=== PATIENT | male | born 1945 | race Caucasian/White ===

== ENCOUNTER 2021-01-18 11:00 | IRF | payer MEDICARE, SELFPAY ==
[2021-01-18 11:00] VITALS: BP 116/46; PULSE 68; RESP 18; TEMP 36.1; O2SAT 99; BMI 18.8
--- NOTE | 2021-01-18 11:00 | ADMGEN ---
This patient, Harris Ray, was admitted to [facility] Room 221-02. Patient/family oriented to hospital policies and general routines including ID bracelet, bed and alarms, visiting hours, pain management, procedures, bathroom and other care routines, personal items, smoking policy, room service/diet, and visiting hours. Information on how to activate the Rapid Response Team has been discussed. Patient/Family are encouraged to report perceived risks to care and to ask questions if they do not understand what they are told or what they should do. Was transported via [facility] last B/P 102/58, here is 116/46. made aware of admission. Alert, oriented, pleasant
[2021-01-18 12:12] LABS: Glucose Point of Care 207 mg/dl (65-105)
[2021-01-18 14:00] VITALS: BP 101/46; PULSE 63; RESP 18; TEMP 36.1; O2SAT 99
[2021-01-18 15:07] LABS: Mean Platelet Volume 9.4 fl (7.4-10.4); Platelet Count Result 295 k/mm3 (150-375)
--- NOTE | 2021-01-18 16:09 | WPDREHABHP ---
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 Patient was admitted on 01/05/2021 to [facility] ED with complaints of dizziness and generalized weakness. Patient was found to have an urinary tract infection and was placed on IV antibiotics. Patient was cleared for surgery and underwent a left AKA on 01/12/[address] left AKA by Dr Jung . [facility] course: UTI treated with Rocephin 01/12/21 L AKA Cardiology was consulted to adjust meds. Patient has a history of pacemaker due to Afib/flutter and recently had an ablation. Patient's Eliquis has been discontinued with successful NSR after ablation. Post op includes hypotension, urinary retention with Segal being discontinued on 01/13, postoperative pain, hyponatremia, hyperglycemia with A1c [id number], leukocytosis, and acute blood loss anemia. Postop pain was controlled with IV Dilaudid COSTUME SHOP MANAGER which was removed on 01/16 and currently is on [place]. patient's home medicine of glipizide was discontinued upon transfer to rehab. Patient will remain on heparin 5000 units q.8 hours for prophylaxis of DVT. Patient will remain on aspirin and beta-silas. The patient has not traveled outside the [place] or had contact with someone who is ill that his travel outside the [place] in the past 21 days. The patient has not traveled to an area of the [place] that is experiencing no transmission of COVID and has not had close personal contact with anyone with COVID. The patient does not have a fever nor experiencing lowers respiratory illness symptoms. Therapy was initiated at the acute care facility and the patient transferred to us from [facility] on 01/18/2021 FALLS OR SURGERIES: the patient has had major surgery last 100 days, left AKA on 01/12/2021. The patient has not had falls nor injuries from falls in the past years. PRIOR LEVEL OF FUNCTION: Eating was [INDEPENDENT] Oral Care was [INDEPENDENT] Toileting Hygiene was [INDEPENDENT] Shower/Bathing was [INDEPENDENT] Upper Body Dressing was [INDEPENDENT] Lower Body Dressing was [INDEPENDENT] Donning/[place] Footwear was [INDEPENDENT] Rolling Left and Right was [INDEPENDENT] Sit to Lying was [INDEPENDENT] Lying to Sitting was [INDEPENDENT] Sit to Stand was [INDEPENDENT] Bed to Chair Transfers was [INDEPENDENT] Toilet Transfers was [INDEPENDENT] Walking was [INDEPENDENT] [>500 feet] with [NO DEVICE] Wheelchair Mobility was [NOT APPLICABLE PRIOR TO ADMISSION] Stairs were 14 stepsINDEPENDENT CURRENT LEVEL OF FUNCTION: Eating was independent Oral Care was set upper clean-up assistance Toileting Hygiene was substantial to max assist Shower/Bathing was partial to mod assist Upper Body Dressing was setup Lower Body Dressing was substantial to max assist Donning/[place] Footwear was substantial to max assist Rolling Left and Right was partial to mod assist Sit to Lying was substantial to max assist Lying to Sitting was substantial to max assist Sit to Stand was substantial to max assist Bed to Chair Transfers were dependent Toilet Transfers were dependent Walking was 2 ft wit
[2021-01-18 16:42] LABS: Glucose Point of Care 196 mg/dl (65-105)
[2021-01-18] MEDS: HEPARIN SODIUM 5,000 UNITS/ML VIAL 5000 UNITS SUB-Q ×2 (17:29→20:40)
[2021-01-18] MEDS: FUROSEMIDE 40 MG TABLET PO (17:30)
[2021-01-18] MEDS: PANTOPRAZOLE 40 MG TABLET PO (17:30)
[2021-01-18] MEDS: DOCUSATE SODIUM 100 MG CAPSULE PO (17:31)
[2021-01-18] MEDS: HYDROcodone/acetaminophen (*CRX) 7.5-325 MG TABLET 1 TAB PO (17:35)
[2021-01-18 20:40] VITALS: PULSE 63
[2021-01-18] MEDS: TAMSULOSIN HCL 0.4 MG CAPSULE PO (20:40)
[2021-01-18] MEDS: carvediloL 3.125 MG TABLET PO (20:40)
[2021-01-18] MEDS: ROSUVASTATIN 10 MG TABLET 20 MG PO (20:40)
[2021-01-18 21:53] VITALS: BP 118/47; PULSE 60; RESP 16; TEMP 36.6; O2SAT 99
[2021-01-18 21:54] LABS: Glucose Point of Care 203 mg/dl (65-105)
[2021-01-18] MEDS: ACETAMINOPHEN 325 MG TABLET 650 MG PO (22:35)
[2021-01-19] MEDS: HYDROcodone/acetaminophen (*CRX) 7.5-325 MG TABLET 1 TAB PO ×2 (00:26→08:31)
[2021-01-19 04:49] LABS: Basophils Absolute Auto 0.1 K/mm3 (0.0-0.1); Basophils Percent Auto 1.3 % (0.2-1.2); Eosinophils Absolute Auto 0.1 K/mm3 (0-0.3); Eosinophils Percent Auto 1.8 % (0-4.4); Hematocrit 33.9 % (42.0-52.0); Hemoglobin 11.8 g/dL (14.0-18.0); Immature Granulocyte Absolute 0.04 K/mm3 (0.00-0.031); Immature Granulocyte Percent A 0.5 % (0-0.5); Lymphocytes Absolute Auto 1.36 K/mm3 (0.9-3.2); Lymphocytes Percent Auto 17.9 % (18.3-44.2); Mean Corpuscular HGB Conc 34.8 g/dl (32-36); Mean Corpuscular Hemoglobin 31.4 pg (26-34); Mean Corpuscular Volume 90.2 fl (80-100); Mean Platelet Volume 9.5 fl (7.4-10.4); Monocytes Absolute Auto 0.7 K/mm3 (0.1-0.6); Monocytes Percent Auto 9.7 % (2.6-8.5); Neutrophils Absolute Auto 5.2 K/mm3 (1.3-6.7); Neutrophils Percent Auto 68.8 % (45.5-73.1); Platelet Count Result 286 k/mm3 (150-375); Red Blood Count 3.76 M/mm3 (4.6-6.20); Red Cell Distribution Width 13.8 % (11.5-14.5); White Blood Count 7.6 K/mm3 (4.5-10.0)
[2021-01-19 04:58] LABS: Alanine Aminotransferase 17 U/L (4-50); Albumin Level 3.5 g/dL (3.5-5.1); Alkaline Phosphatase 78 U/L (38-126); Anion Gap 1 mmol/L (8-16); Aspartate Amino Transferase 31 U/L (17-59); Bilirubin,Total 0.7 mg/dL (0.2-1.3); Blood Urea Nitrogen 18 mg/dL (9-20); Calcium 9.8 mg/dL (8.4-10.2); Carbon Dioxide 33 mmol/L (22-30); Chloride 95 mmol/L (98-107); Estimated CRCL calculation 59 ml/min; Estimated Glomerular Filt Rate > 60; Glucose 151 mg/dL (75-110); Potassium 3.4 mmol/L (3.4-5.0); Sodium 129 mmol/L (137-145)
[2021-01-19 06:00] VITALS: BP 170/63; PULSE 68; RESP 16; TEMP 36.1; O2SAT 96
[2021-01-19] MEDS: HEPARIN SODIUM 5,000 UNITS/ML VIAL 5000 UNITS SUB-Q ×3 (06:51→20:12)
[2021-01-19 06:59] LABS: Glucose Point of Care 180 mg/dl (65-105)
[2021-01-19 08:30] VITALS: PULSE 68
[2021-01-19] MEDS: FUROSEMIDE 40 MG TABLET PO ×2 (08:30→17:17)
[2021-01-19] MEDS: ASPIRIN 81 MG ENTERIC TABLET PO (08:30)
[2021-01-19] MEDS: carvediloL 3.125 MG TABLET PO ×2 (08:30→20:14)
[2021-01-19] MEDS: TAMSULOSIN HCL 0.4 MG CAPSULE PO ×2 (08:30→20:12)
[2021-01-19] MEDS: DOCUSATE SODIUM 100 MG CAPSULE PO ×2 (08:31→17:17)
[2021-01-19] MEDS: NICOTINE (*PBKC) 21 MG PATCH 1 PATCH TRANSDERM (08:31)
--- NOTE | 2021-01-19 10:53 | RPD ---
INDIVIDUALIZED PLAN OF CARE FOR Harris Ray Brief Synthesis of Pre-Admission Screen, Post-Admission Evaluation and Therapy Evaluations: The patient presents to rehab with severe PVD and aortoiliac occlusive disease s/p left [id number]. Comorbidities include CAD s/p CABG x 6 (2006), DM with chronic kidney disease stage 3, peripheral neuropathy, HTN, HLD, systolic CHF, ischemic cardiomyopathy s/p biventricular pacemaker, atrial fibrillation chronically anticoagulated on Eliquis, current tobacco use, generalized weakness, UTI, left cataract, COPD, GERD, IBS, BPH with nocturia, osteoarthritis, cervical disc disease, lumbar disc disease, chronic back pain, restless leg syndrome, depression, urinary retention, acute cystitis without hematuria, leukocytosis, normocytic normochromic anemia, history of hypothyroidism, acute renal failure, generalized weakness. The complexity of the patient's medical management, nursing, and therapy needs require an inpatient rehab hospital stay with a physician-led interdisciplinary team approach. The patient?s needs will be best met in an intensive program vs. at a lower level of care. The patient requires physician services for medical oversight, management of post-op complications in the setting of present comorbidities, management of diabetes mellitus diagnosis, infection, and pain management. Post-op complications have included hypotension, urinary retention (Segal DC 01/13) , post-operative pain, hyponatremia, hyperglycemia (A1c 6.2 on 11/2020), leukocytosis, and acute blood loss anemia. The patient requires nursing services for anticoagulation therapy, diabetes training, DVT prophylactics, infection protection, medication management and education, pressure relief, and wound care. The patient will be taught how to wrap the residual limb and how to monitor their skin for promotion of healing. Deficits include:ADLs, Balance, Endurance, Family Training/Education, Mobility, Pain Management, ROM, Safety, Strength, and Transfers. Lay Out And Detail Drafter/Case Management for: Discharge Planning and Patient/Family Counseling Physical Therapy: 5 days per week for 90 minutes. Treatments may include: Therapeutic Exercise, Gait Training, Neuromuscular Re-education, Transfer Training, Community Reintegration, Bed Mobility, Patient/Family Education, Wheelchair Mobility Group Therapy/Concurrent Therapy Rationales: -Improve attention span during functional activities in a distracted environment. -Enhance problem solving and/or adequate judgment skills during functional activities in a distracted environment. -Promote increased safety awareness in a distracted environment to reduce fall risk with functional tasks, transfers, and ambulation to allow a more safe, self-sufficient return to the home environment. -Improve dynamic balance skills to promote safety and independence with functional activities in a distracted environment for maximum gain. Occupational Therapy: 5 days per week for 90 minutes. Treatments may include: Therapeutic Exercise, Therapeutic Activity, Cognitive Training, Self-Care Transfer Training, Community Reintegration, Home Management, Patient/Family Education, Wheelchair Mobility Training, Energy Conservation Training Group Therapy/Concurrent Therapy Rationales: -Allow therapist to observe and teach generalization and carry-over of skills learned in individual therapy. -Enhance problem solving and sequencing skills during therapeutic activities in a distracted environment. -Promote increased safety awareness in a realistic setting to reduce fall risk with functional tasks due to visual and verbal distractions. -Increase functional level with ADLs, ADL transfers and use of adaptive equipment through therapeutic activities with others while promoting safety to allow a more safe, self-sufficient return home. Medical Prognosis: Good Anticipated Length of Stay: 14 days Rehab Goals: Eating Goal: 06-Independent Oral Hygiene Goal:
[2021-01-19 11:56] LABS: Glucose Point of Care 226 mg/dl (65-105)
[2021-01-19 12:09] VITALS: BMI 18.8
[2021-01-19] MEDS: ACETAMINOPHEN 325 MG TABLET 650 MG PO (12:43)
[2021-01-19] MEDS: BETAMETHASONE/CLOTRIMAZOLE CR 15 GM TUBE 1 APPLIC TOPICAL ×2 (12:44→20:15)
[2021-01-19] MEDS: INSULIN ASPART (*BKC) 100 UNITS/ML SUB-Q (12:44)
[2021-01-19] MEDS: SILVERGEL (ELTA) 45 ML 1 APPLIC TOPICAL (12:44)
--- NOTE | 2021-01-19 13:28 | WPDNEURORHBP ---
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 Patient was admitted on 01/05/2021 to [facility] ED with complaints of dizziness and generalized weakness. Patient was found to have an urinary tract infection and was placed on IV antibiotics. Patient was cleared for surgery and underwent a left AKA on 01/12/[address] Jung . [facility] course: UTI treated with Rocephin 01/12/21 L AKA Cardiology was consulted to adjust meds. Patient has a history of pacemaker due to Afib/flutter and recently had an ablation. Patient's Eliquis has been discontinued with successful NSR after ablation. Post op includes hypotension, urinary retention with Segal being discontinued on 01/13, postoperative pain, hyponatremia, hyperglycemia with A1c 6. leukocytosis, and acute blood loss anemia. Postop pain was controlled with IV Dilaudid PROFESSIONAL ORGANIZER which was removed on 01/16 and currently is on [place]. patient's home medicine of glipizide was discontinued upon transfer to rehab. Patient will remain on heparin 5000 units q.8 hours for prophylaxis of DVT. Patient will remain on aspirin and beta-silas. Therapy was initiated at the acute care facility and the patient transferred to us from [facility] on 01/18/21 Patient c Review of Systems Review of Systems: Narrative: Patient complaining of upper thoracic/lower cervical pain. Patient complaining of phantom limb pain. Patient with complaints of dizziness, and lightheadedness when sitting up. Functional Status Ambulation Ability Ability to Ambulate 10 Feet: Total Assistance X 1 Ambulation Assistive Devices: Walker, Wheeled Exam Narrative: Exam Narrative: Skin slightly paler than yesterday. Head normocephalic, EOMI, kyphotic posture. Heart rate and rhythm is regular. Lung sounds are distant. Abdomen is soft nontender. Overall endurance is fair minus. Objective Data Vital Signs Vital Signs: Vital Signs - 24 hr 01/18/21 14:00 01/18/21 20:40 01/18/21 21:53 Temperature 36.1 C L 36.6 C Pulse Rate 63 63 60 Respiratory Rate 18 16 Blood Pressure 101/46 L 118/47 L Pulse Oximetry 99 99 01/19/21 06:00 01/19/21 08:30 Temperature 36.1 C L Pulse Rate 68 68 Respiratory Rate 16 Blood Pressure 170/63 H Pulse Oximetry 96 Intake/Output Intake/Output: Intake & Output 01/16/21 01/17/21 01/18/21 01/19/21 23:59 23:59 23:59 23:59 Intake Total 720 240 Balance 720 240 Meds/Results Medications: Active Medications Generic Name Dose Route Start Last Admin Trade Name Freq PRN Reason Stop Dose Admin Acetaminophen 650 mg 01/18/21 14:13 01/19/21 12:43 Acetaminophen 325 Mg Tablet PO 650 mg Q6H PRN Administration h/a, mild pain, fever Hydrocodone Bitart/Acetaminophen 1 tab 01/18/21 14:13 01/19/21 08:31 Hydrocodone/Acetaminophen (*Crx) 7.5-325 Mg Tablet PO 1 tab Q4H PRN Administration Pain (Scale Score 7-10) Aspirin 81 mg 01/19/21 09:00 01/19/21 08:30 Aspirin 81 Mg Enteric Tablet PO 81 mg DAILY JESS Administration Carvedilol 3.125 mg 01/19/21 21:00 Carvedilol 3.125 Mg Tablet PO BID [facility] Clotrimazole 1 applic 01/19/21 09:00 01/19/21 12:44 Betamethasone/Clotrimazole Cr 15 Gm Tube TOPICAL 1 applic Q12HR JESS Administration Dextrose 12.5 gm 01/18/21 12:30 Dextrose 50% 25 Gm/50 Ml Syringe I
[2021-01-19 14:00] VITALS: BP 122/55; PULSE 69; RESP 18; TEMP 36.6; O2SAT 99
--- NOTE | 2021-01-19 15:53 | PM.IMCN ---
Assessment and Plan Assessment and plan (1) Hyponatremia: Code(s): E87.1 - Hypo-osmolality and hyponatremia Status: Acute Assessment and Plan: Patient is getting diuretics. His sugar is high and patient is drinking lot of fluids. These all can contribute to low sodium level. Plan is to give him low-dose 0.9 saline for few days. Restrict p.o. fluid intake. Control is sugar better. Monitor BMP in the morning. (2) Above knee amputation of left lower extremity: Code(s): S78.112A - Complete traumatic amputation at level between left hip and knee, initial encounter Status: Acute Assessment and Plan: Continue physical therapy. (3) Phantom pain after amputation of lower extremity: Code(s): G54.6 - Phantom limb syndrome with pain Status: Acute Assessment and Plan: Continue pain control. (4) Chronic kidney disease, stage 3: Code(s): N18.30 - Chronic kidney disease, stage 3 unspecified Status: Acute Assessment and Plan: Monitor BMP the morning. (5) COPD (chronic obstructive pulmonary disease): Code(s): J44.9 - Chronic obstructive pulmonary disease, unspecified Status: Acute Assessment and Plan: States stable on medication. (6) Hypertension: Code(s): I10 - Essential (primary) hypertension Status: Acute Assessment and Plan: Stable on medication. (7) Hyperlipidemia: Code(s): E78.5 - Hyperlipidemia, unspecified Status: Acute Assessment and Plan: Stable on medication. (8) Peripheral vascular disease: Code(s): I73.9 - Peripheral vascular disease, unspecified Status: Acute Assessment and Plan: Stable on medication. HPI Data of Consult Consult date: 01/19/21 Requesting Physician: Harriet Wick DO Primary Care Provider: UNKNOWN,DOCTOR Consult Narrative Narrative: Reason for consult:- Hyponatremia Mr. Harris hummel is 75 years old male with history of multiple medical problems including diabetes mellitus was seen in the rehab room 221 for a sodium level of 129. Patient is getting rehab in the rehab unit of [facility] for left above-knee amputation that was done about 1 week ago. At present time patient is completely asymptomatic. His pain is under control. Patient denies any shortness of breath or chest pain. Patient denies any abdominal pain, nausea, vomiting. Patient denies any fever or chills. Patient appetite is good and his mood is stable. Review of Systems Review of Systems: All systems reviewed & are unremarkable except as noted in HPI and below (the history and physical exam.) [facility] Past Medical History Medical History BPH (benign prostatic hyperplasia) Cardiac pacemaker Cervical disc disease CHF (congestive heart failure) Chronic back pain Chronic kidney disease, stage 3 Chronic wound of extremity COPD (chronic obstructive pulmonary disease) Coronary artery disease GERD (gastroesophageal reflux disease) History of atrial fibrillation History of depression History of recurrent UTIs Hyperlipidemia Hypertension Irritable bowel syndrome Lumbar disc disease Osteoarthritis Osteoporosis Pacemaker Peripheral neuropathy Peripheral vascular disease Restless leg syndrome Tobacco abuse Type 2 diabetes mellitus Surgical History Surgical History History of angioplasty History of cataract surgery S/P ablation of atrial fibrillation S/P femoral-popliteal bypass surgery Status post aorto-coronary artery bypass graft Family History Family History Mother Diabetes mellitus Father Heart disease Social History Social History Social History: . Patient lives alone. 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 He has many friends and support hi
[2021-01-19] MEDS: PANTOPRAZOLE 40 MG TABLET PO (17:17)
[2021-01-19] MEDS: GABAPENTIN 100 MG CAPSULE PO (17:17)
[2021-01-19 17:19] LABS: Glucose Point of Care 169 mg/dl (65-105)
--- NOTE | 2021-01-19 18:20 | PC.NURSE ---
Called Dr. Martines to clarify orders, he stated he wanted potassium to start today and also IV NS to start today, not tuesday, Also he stated to continue PO fluid restriction
[2021-01-19] MEDS: POTASSIUM CHLORIDE 20 MEQ PACKET (FOR LIQUID) PO (19:43)
[2021-01-19] MEDS: SODIUM CHLORIDE 0.9% IV 1,000 ML 75 ML IV CONT (19:43)
[2021-01-19] MEDS: ROSUVASTATIN 10 MG TABLET 20 MG PO (20:12)
[2021-01-19 20:14] VITALS: PULSE 68
[2021-01-19 20:24] LABS: Glucose Point of Care 230 mg/dl (65-105)
[2021-01-19 22:00] VITALS: BP 109/59; PULSE 67; RESP 18; TEMP 36.8; O2SAT 95
[2021-01-20] VITALS (7 sets, daily range): BP systolic 109–153; BP diastolic 50–62; PULSE 59–72; RESP 16–24; TEMP 36.1; O2SAT 96–100
[2021-01-20 05:04] LABS: Anion Gap 5 mmol/L (8-16); Blood Urea Nitrogen 17 mg/dL (9-20); Calcium 9.5 mg/dL (8.4-10.2); Carbon Dioxide 29 mmol/L (22-30); Chloride 98 mmol/L (98-107); Estimated CRCL calculation 59 ml/min; Estimated Glomerular Filt Rate > 60; Glucose 151 mg/dL (75-110); Potassium 3.6 mmol/L (3.4-5.0); Sodium 132 mmol/L (137-145)
[2021-01-20] MEDS: HEPARIN SODIUM 5,000 UNITS/ML VIAL 5000 UNITS SUB-Q ×3 (06:02→22:00)
[2021-01-20 06:10] LABS: Glucose Point of Care 159 mg/dl (65-105)
[2021-01-20] MEDS: SODIUM CHLORIDE 0.9% IV 1,000 ML 75 ML IV CONT ×2 (07:57→22:58)
[2021-01-20] MEDS: HYDROcodone/acetaminophen (*CRX) 7.5-325 MG TABLET 1 TAB PO ×2 (08:36→14:19)
[2021-01-20] MEDS: GABAPENTIN 100 MG CAPSULE PO ×3 (08:37→22:59)
[2021-01-20] MEDS: ASPIRIN 81 MG ENTERIC TABLET PO (08:37)
[2021-01-20] MEDS: FUROSEMIDE 40 MG TABLET PO ×2 (08:40→16:55)
[2021-01-20] MEDS: DOCUSATE SODIUM 100 MG CAPSULE PO ×2 (08:40→16:55)
[2021-01-20] MEDS: TAMSULOSIN HCL 0.4 MG CAPSULE PO ×2 (08:40→22:59)
--- NOTE | 2021-01-20 10:47 | PM.IMPN ---
Progress Note: A&P Assessment and Plan (1) Hyponatremia: Code(s): E87.1 - Hypo-osmolality and hyponatremia Status: Acute Assessment and Plan: Patient is getting diuretics. His sugar is high and patient is drinking lot of fluids. These all can contribute to low sodium level. Plan is to give him low-dose 0.9 saline for few days. Restrict p.o. fluid intake. Control is sugar better. Monitor BMP in the morning. (2) Above knee amputation of left lower extremity: Code(s): S78.112A - Complete traumatic amputation at level between left hip and knee, initial encounter Status: Acute Assessment and Plan: Continue physical therapy. (3) Phantom pain after amputation of lower extremity: Code(s): G54.6 - Phantom limb syndrome with pain Status: Acute Assessment and Plan: Continue pain control. (4) Chronic kidney disease, stage 3: Code(s): N18.30 - Chronic kidney disease, stage 3 unspecified Status: Acute Assessment and Plan: Monitor BMP the morning. (5) COPD (chronic obstructive pulmonary disease): Code(s): J44.9 - Chronic obstructive pulmonary disease, unspecified Status: Acute Assessment and Plan: States stable on medication. (6) Hypertension: Code(s): I10 - Essential (primary) hypertension Status: Acute Assessment and Plan: Stable on medication. (7) Hyperlipidemia: Code(s): E78.5 - Hyperlipidemia, unspecified Status: Acute Assessment and Plan: Stable on medication. (8) Peripheral vascular disease: Code(s): I73.9 - Peripheral vascular disease, unspecified Status: Acute Assessment and Plan: Stable on medication. Additional Plan Today patient sodium is 132. Will continue with fluid restriction repeat sodium in the morning sugar is also better controlled. Will continue current treatment and physical therapy Subjective Date/time seen: 01/20/21 10:47 Patient was seen during the morning rounds today. Patient getting physical therapy. Feeling better. No shortness of breath or chest pain. No abdominal pain, no nausea or vomiting. Pain controlled. Mood stable. Review of Systems Review of Systems: All systems reviewed & are unremarkable except as noted in HPI and below (the history and physical exam.) Exam Narrative: Exam Narrative: Exam Narrative: patient is seen sitting in a wheelchair. Patient appears older than his stated age. Patient is alert and oriented x4. Head is normocephalic. Extraocular muscles are intact and tacked. Pupils are pinpoint. Speech is fluent. Heart rate and rhythm is regular. Pacemaker is noted to the left chest wall. Lungs are distant breath sounds. Abdomen is soft nontender with multiple circuit Rx 1 from CABG another from abdominal surgery that required an ileostomy which has been reversed. Right lower extremity reveals excessive dry skin poor foot care is noted. Bilateral upper extremity strength are 4/5 right lower extremity strength is 4-5 left is a AK a incision is intact no drainage noted. Objective Data Vital Signs Vital Signs: Vital Signs - 24 hr 01/19/21 14:00 01/19/21 20:14 01/19/21 22:00 Temperature 36.6 C 36.8 C Pulse Rate 69 68 67 Respiratory Rate 18 18 Blood Pressure 122/55 L 109/59 L Pulse Oximetry 99 95 01/20/21 06:00 Temperature 36.1 C L Pulse Rate 59 L Respiratory Rate 24 H Blood Pressure 149/56 H Pulse Oximetry 96 Intake/Output Intake/Output: Intake & Output 01/17/21 01/18/21 01/19/21 01/20/21 23:59 23:59 23:59 23:59 Intake Total 966 366 0804 Output Total 810 Balance 720 720 430 Meds/Results Medications: Active Medications Generic Name Dose Route Start Last Admin Trade Name Freq PRN Reason Stop Dose Admin Acetaminophen 650 mg 01/18/21 14:13 01/19/21 12:43 Acetaminophen 325 Mg Tablet PO 650 mg Q6H PRN Administration h/a, mild pain, fever Hydrocodone Bitart/[place]
[2021-01-20] MEDS: NICOTINE (*PBKC) 21 MG PATCH 1 PATCH TRANSDERM (10:53)
[2021-01-20] MEDS: LIDOCAINE 5% PATCH 2 PATCH TRANSDERM (10:54)
[2021-01-20] MEDS: SILVERGEL (ELTA) 45 ML 1 APPLIC TOPICAL (10:59)
[2021-01-20] MEDS: BETAMETHASONE/CLOTRIMAZOLE CR 15 GM TUBE 1 APPLIC TOPICAL ×2 (11:00→22:58)
--- NOTE | 2021-01-20 11:48 | PCPTNOTE ---
Harris Ray was evaluated for a wheeled walker on 01/20/2021 by this physical therapist expanded function dental assistant. The wheeled walker will resolve patient's mobility limitations and will be used for ADL's within the home. The patient can safely use the wheeled walker. ?The wheeled walker will resolve the patient?s mobility deficits, including impaired balance, decrease endurance and decrease strength.
[2021-01-20 11:50] LABS: Glucose Point of Care 185 mg/dl (65-105)
[2021-01-20] MEDS: POTASSIUM CHLORIDE 20 MEQ PACKET (FOR LIQUID) PO (12:08)
[2021-01-20] MEDS: carvediloL 3.125 MG TABLET PO ×2 (12:09→22:58)
--- NOTE | 2021-01-20 14:04 | WPDNEURORHBP ---
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 Patient was admitted on 01/05/2021 to [facility] ED with complaints of dizziness and generalized weakness. Patient was found to have an urinary tract infection and was placed on IV antibiotics. Patient was cleared for surgery and underwent a left AKA on 01/12/[address] Jung . [facility] course: UTI treated with Rocephin 01/12/21 L AKA Cardiology was consulted to adjust meds. Patient has a history of pacemaker due to Afib/flutter and recently had an ablation. Patient's Eliquis has been discontinued with successful NSR after ablation. Post op includes hypotension, urinary retention with Segal being discontinued on 01/13, postoperative pain, hyponatremia, hyperglycemia with A1c 6. leukocytosis, and acute blood loss anemia. Postop pain was controlled with IV Dilaudid EPIC TRAINER which was removed on 01/16 and currently is on [place]. patient's home medicine of glipizide was discontinued upon transfer to rehab. Patient will remain on heparin 5000 units q.8 hours for prophylaxis of DVT. Patient will remain on aspirin and beta-silas. Therapy was initiated at the acute care facility and the patient transferred to us from [facility] on 01/18/21 01/20/21 Patient alert and talkative this afternoon. Patient with ongoing complaints of pain. He states that his pain was not controlled at home. Will d/c SSI and resume glipizide at 2.5 mg XL daily. Appreciate hospitalist consult Review of Systems Constitutional: Constitutional: Reports weakness Eyes: Eyes: Reports no additional eye complaints Cardiovascular: Cardiovascular: Reports no additional cardiovascular complaints Neurologic: Reports weakness Functional Status Ambulation Ability Ability to Ambulate 10 Feet: Total Assistance X 1 Ambulation Assistive Devices: Walker, Wheeled Exam Narrative: Exam Narrative: Head normocephalic, EOMI, kyphotic posture. Heart rate and rhythm is regular. Lung sounds are distant. Abdomen is soft nontender. Overall endurance is fair minus.Patient participating in therapy. Objective Data Vital Signs Vital Signs: Vital Signs - 24 hr 01/19/21 20:14 01/19/21 22:00 01/20/21 06:00 Temperature 36.8 C 36.1 C L Pulse Rate 68 67 59 L Respiratory Rate 18 24 H Blood Pressure 109/59 L 149/56 H Pulse Oximetry 95 96 01/20/21 11:00 01/20/21 12:09 Temperature Pulse Rate 61 61 Respiratory Rate Blood Pressure 113/53 L Pulse Oximetry Intake/Output Intake/Output: Intake & Output 01/17/21 01/18/21 01/19/21 01/20/21 23:59 23:59 23:59 23:59 Intake Total 001 511 4160 Output Total 810 Balance 720 720 670 Meds/Results Medications: Active Medications Generic Name Dose Route Start Last Admin Trade Name Freq PRN Reason Stop Dose Admin Acetaminophen 650 mg 01/18/21 14:13 01/19/21 12:43 Acetaminophen 325 Mg Tablet PO 650 mg Q6H PRN Administration h/a, mild pain, fever Hydrocodone Bitart/Acetaminophen 1 tab 01/18/21 14:13 01/20/21 08:36 Hydrocodone/Acetaminophen (*Crx) 7.5-325 Mg Tablet PO 1 tab Q4H PRN Administration Pain (Scale Score 7-10) Aspirin 81 mg 01/19/21 09:00 01/20/21 08:37 Aspirin 81 Mg Enteric Tablet PO 81 mg DAILY JESS Administration Carvedilol 3.125 mg 01/20/21 12:00 01/20/21 12:09 Carve
[2021-01-20] MEDS: PANTOPRAZOLE 40 MG TABLET PO (16:56)
[2021-01-20 17:04] LABS: Glucose Point of Care 174 mg/dl (65-105)
[2021-01-20] MEDS: ROSUVASTATIN 10 MG TABLET 20 MG PO (22:59)
[2021-01-21 05:20] LABS: Anion Gap 3 mmol/L (8-16); Blood Urea Nitrogen 16 mg/dL (9-20); Calcium 9.7 mg/dL (8.4-10.2); Carbon Dioxide 30 mmol/L (22-30); Chloride 102 mmol/L (98-107); Estimated CRCL calculation 59 ml/min; Estimated Glomerular Filt Rate > 60; Glucose 150 mg/dL (75-110); Potassium 4.5 mmol/L (3.4-5.0); Sodium 135 mmol/L (137-145)
[2021-01-21] MEDS: HEPARIN SODIUM 5,000 UNITS/ML VIAL 5000 UNITS SUB-Q ×3 (05:41→22:07)
[2021-01-21 06:00] VITALS: BP 146/56; PULSE 66; RESP 16; TEMP 35.9; O2SAT 97
[2021-01-21 06:00] LABS: Glucose Point of Care 163 mg/dl (65-105)
--- NOTE | 2021-01-21 08:24 | WPDNEURORHBP ---
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 Patient was admitted on 01/05/2021 to [facility] ED with complaints of dizziness and generalized weakness. Patient was found to have an urinary tract infection and was placed on IV antibiotics. Patient was cleared for surgery and underwent a left AKA on 01/12/[address] Jung . [facility] course: UTI treated with Rocephin 01/12/21 L AKA Cardiology was consulted to adjust meds. Patient has a history of pacemaker due to Afib/flutter and recently had an ablation. Patient's Eliquis has been discontinued with successful NSR after ablation. Post op includes hypotension, urinary retention with Segal being discontinued on 01/13, postoperative pain, hyponatremia, hyperglycemia with A1c 6. leukocytosis, and acute blood loss anemia. Postop pain was controlled with IV Dilaudid MASK DESIGNER which was removed on 01/16 and currently is on [place]. patient's home medicine of glipizide was discontinued upon transfer to rehab. Patient will remain on heparin 5000 units q.8 hours for prophylaxis of DVT. Patient will remain on aspirin and beta-silas. Therapy was initiated at the acute care facility and the patient transferred to us from [facility] on 01/18/21 01/20/21 Patient alert and talkative this afternoon. Patient with ongoing complaints of pain. He states that his pain was not controlled at home. Will d/c SSI and resume glipizide at 2.5 mg XL daily. Appreciate hospitalist consult 01/21/21 Patient in good spirits. patient slept well. Incision shows good approximation scant drainage. Right foot wounds are decreasing in size. Review of Systems Review of Systems: Narrative: Patient feeling better but continues chronic pain All systems reviewed & are unremarkable except as noted in HPI and below Functional Status Ambulation Ability Ability to Ambulate 10 Feet: Total Assistance X 1 Ambulation Assistive Devices: Walker, Wheeled Exam Narrative: Exam Narrative: Head normocephalic, EOMI, kyphotic posture. Heart rate and rhythm is regular. Lung sounds are distant. Abdomen is soft nontender. Endurance is better. Incision shows good approximation scant drainage. Right foot wound is healing Objective Data Vital Signs Vital Signs: Vital Signs - 24 hr 01/20/21 11:00 01/20/21 12:09 01/20/21 14:00 Temperature 36.1 C L Pulse Rate 61 61 66 Respiratory Rate 18 Blood Pressure 113/53 L 109/62 Pulse Oximetry 96 01/20/21 21:59 01/20/21 22:58 01/21/21 06:00 Temperature 36.1 C L 35.9 C L Pulse Rate 65 72 66 Respiratory Rate 16 16 Blood Pressure 153/50 H 146/56 H Pulse Oximetry 100 97 Intake/Output Intake/Output: Intake & Output 01/18/21 01/19/21 01/20/21 01/21/21 23:59 23:59 23:59 23:59 Intake Total 988 852 3585 120 Output Total 1710 1480 Balance 186 475 1673 -1360 Meds/Results Medications: Active Medications Generic Name Dose Route Start Last Admin Trade Name Freq PRN Reason Stop Dose Admin Acetaminophen 650 mg 01/18/21 14:13 01/19/21 12:43 Acetaminophen 325 Mg Tablet PO 650 mg Q6H PRN Administration h/a, mild pain, fever Hydrocodone Bitart/Acetaminophen 1 tab 01/18/21 14:13 01/20/21 14:19 Hydrocodone/Acetaminophen (*Crx) 7.5-325 Mg Tablet PO 1 tab Q4H PRN Administration Pain (Scale Score 7-10) Aspir
[2021-01-21] MEDS: ASPIRIN 81 MG ENTERIC TABLET PO (09:06)
[2021-01-21] MEDS: glipiZIDE XL 2.5 MG TAB.ER.24 PO (09:06)
[2021-01-21] MEDS: BETAMETHASONE/CLOTRIMAZOLE CR 15 GM TUBE 1 APPLIC TOPICAL ×2 (09:07→22:07)
[2021-01-21] MEDS: GABAPENTIN 100 MG CAPSULE PO ×4 (09:07→22:07)
[2021-01-21] MEDS: DOCUSATE SODIUM 100 MG CAPSULE PO (09:07)
[2021-01-21] MEDS: FUROSEMIDE 40 MG TABLET PO ×2 (09:07→17:09)
[2021-01-21] MEDS: NICOTINE (*PBKC) 21 MG PATCH 1 PATCH TRANSDERM (09:08)
[2021-01-21] MEDS: POTASSIUM CHLORIDE 20 MEQ PACKET (FOR LIQUID) PO (09:08)
[2021-01-21] MEDS: LIDOCAINE 5% PATCH 2 PATCH TRANSDERM (09:08)
[2021-01-21] MEDS: SILVERGEL (ELTA) 45 ML 1 APPLIC TOPICAL (09:08)
[2021-01-21] MEDS: TAMSULOSIN HCL 0.4 MG CAPSULE PO ×2 (09:09→22:06)
[2021-01-21] MEDS: ACETAMINOPHEN 325 MG TABLET 650 MG PO (09:24)
[2021-01-21 09:48] VITALS: BP 110/53; PULSE 78; O2SAT 100
[2021-01-21] MEDS: SODIUM CHLORIDE 0.9% IV 1,000 ML 75 ML IV CONT (11:36)
[2021-01-21 11:53] LABS: Glucose Point of Care 180 mg/dl (65-105)
[2021-01-21 13:04] VITALS: PULSE 78
[2021-01-21] MEDS: carvediloL 3.125 MG TABLET PO ×2 (13:04→22:06)
--- NOTE | 2021-01-21 13:43 | PM.IMPN ---
Progress Note: A&P Assessment and Plan (1) Hyponatremia: Code(s): E87.1 - Hypo-osmolality and hyponatremia Status: Acute Assessment and Plan: Patient is getting diuretics. Most likely related to dehydration continue IV fluidr. Repeat BMP in the morning Anticipate DC IV fluid in the morning. (2) Above knee amputation of left lower extremity: Code(s): S78.112A - Complete traumatic amputation at level between left hip and knee, initial encounter Status: Acute Assessment and Plan: Continue physical therapy. (3) Phantom pain after amputation of lower extremity: Code(s): G54.6 - Phantom limb syndrome with pain Status: Acute Assessment and Plan: Pain control (4) Chronic kidney disease, stage 3: Code(s): N18.30 - Chronic kidney disease, stage 3 unspecified Status: Acute Assessment and Plan: Repeat BMP in a.m. stable avoid nephrotoxic medication (5) COPD (chronic obstructive pulmonary disease): Code(s): J44.9 - Chronic obstructive pulmonary disease, unspecified Status: Acute Assessment and Plan: States stable on medication. (6) Hypertension: Code(s): I10 - Essential (primary) hypertension Status: Acute Assessment and Plan: Stable on medication. (7) Hyperlipidemia: Code(s): E78.5 - Hyperlipidemia, unspecified Status: Acute Assessment and Plan: Stable on medication. (8) Peripheral vascular disease: Code(s): I73.9 - Peripheral vascular disease, unspecified Status: Acute Assessment and Plan: Stable on medication. Additional Plan Today patient sodium is 135 Will continue with fluid restriction repeat sodium in the morning anticipate DC IV fluid in the morning Will continue current treatment and physical therapy Subjective Date/time seen: 01/21/21 13:43 Interval history: Patient seen and examined Patient feels better today still have episodes of dizziness Current on IV fluid Patient denies fever headache chest pain shortness of breath I am seeing the patient for dehydration Exam Narrative: Exam Narrative: Alert looks dehydrated Chest no wheeze crackles Abdomen nontender nondistended CVS S1 + S2 Lower extremity edema . Objective Data Vital Signs Vital Signs: Vital Signs - 24 hr 01/20/21 14:00 01/20/21 21:59 01/20/21 22:58 Temperature 96.9 F L 96.9 F L Pulse Rate 66 65 72 Respiratory Rate 18 16 Blood Pressure 109/62 153/50 H Pulse Oximetry 96 100 01/21/21 06:00 01/21/21 09:48 01/21/21 13:04 Temperature 96.6 F L Pulse Rate 66 78 78 Respiratory Rate 16 Blood Pressure 146/56 H 110/53 L Pulse Oximetry 97 100 Intake/Output Intake/Output: Intake & Output 01/18/21 01/19/21 01/20/21 01/21/21 23:59 23:59 23:59 23:59 Intake Total 338 469 9386 1720 Output Total 1710 1480 Balance 932 746 8499 240 Meds/Results Medications: Active Medications Generic Name Dose Route Start Last Admin Trade Name Freq PRN Reason Stop Dose Admin Acetaminophen 650 mg 01/18/21 14:13 01/21/21 09:24 Acetaminophen 325 Mg Tablet PO 650 mg Q6H PRN Administration h/a, mild pain, fever Hydrocodone Bitart/Acetaminophen 1 tab 01/18/21 14:13 01/20/21 14:19 Hydrocodone/Acetaminophen (*Crx) 7.5-325 Mg Tablet PO 1 tab Q4H PRN Administration Pain (Scale Score 7-10) Aspirin 81 mg 01/19/21 09:00 01/21/21 09:06 Aspirin 81 Mg Enteric Tablet PO 81 mg DAILY JESS Administration Carvedilol 3.125 mg 01/20/21 12:00 01/21/21 13:04 Carvedilol 3.125 Mg Tablet PO 3.125 mg 1200,2100 JESS Administration Clotrimazole 1 applic 01/19/21 09:00 01/21/21 09:07 Betamethasone/Clotrimazole Cr 15 Gm Tube TOPICAL 1 applic Q12HR JESS Administration Dextrose 12.5 gm 01/18/21 12:30 Dextrose 50% 25 Gm/50 Ml Syringe IV PUSH PRN PRN Hypoglycemia Protocol Docusate Sodium 100 mg 01/18/21 17:00 01/21/21 09:07
[2021-01-21 14:00] VITALS: BP 121/48; PULSE 75; RESP 20; TEMP 36.4; O2SAT 100
[2021-01-21] MEDS: PANTOPRAZOLE 40 MG TABLET PO (17:08)
[2021-01-21 17:16] LABS: Glucose Point of Care 157 mg/dl (65-105)
[2021-01-21 22:00] VITALS: BP 165/57; PULSE 60; RESP 18; TEMP 36.6; O2SAT 99
[2021-01-21 22:06] VITALS: PULSE 75
[2021-01-21] MEDS: ROSUVASTATIN 10 MG TABLET 20 MG PO (22:06)
[2021-01-21 22:34] LABS: Glucose Point of Care 219 mg/dl (65-105)
[2021-01-22] MEDS: HEPARIN SODIUM 5,000 UNITS/ML VIAL 5000 UNITS SUB-Q ×3 (05:36→21:55)
[2021-01-22] MEDS: SODIUM CHLORIDE 0.9% IV 1,000 ML 75 ML IV CONT (05:39)
[2021-01-22 06:00] VITALS: BP 150/58; PULSE 65; RESP 16; TEMP 36.1; O2SAT 96
[2021-01-22 06:10] LABS: Glucose Point of Care 131 mg/dl (65-105)
[2021-01-22] MEDS: ACETAMINOPHEN 325 MG TABLET 650 MG PO (06:48)
[2021-01-22 08:00] VITALS: O2SAT 96
[2021-01-22] MEDS: ASPIRIN 81 MG ENTERIC TABLET PO (08:24)
[2021-01-22] MEDS: glipiZIDE XL 2.5 MG TAB.ER.24 PO (08:24)
[2021-01-22] MEDS: DOCUSATE SODIUM 100 MG CAPSULE PO ×2 (08:25→16:23)
[2021-01-22] MEDS: LIDOCAINE 5% PATCH 2 PATCH TRANSDERM (08:25)
[2021-01-22] MEDS: GABAPENTIN 100 MG CAPSULE PO ×4 (08:25→21:55)
[2021-01-22] MEDS: FUROSEMIDE 40 MG TABLET PO ×2 (08:25→16:23)
[2021-01-22] MEDS: POTASSIUM CHLORIDE 20 MEQ PACKET (FOR LIQUID) PO (08:26)
[2021-01-22] MEDS: SILVERGEL (ELTA) 45 ML 1 APPLIC TOPICAL (08:26)
[2021-01-22] MEDS: BETAMETHASONE/CLOTRIMAZOLE CR 15 GM TUBE 1 APPLIC TOPICAL ×2 (08:27→21:56)
[2021-01-22] MEDS: TAMSULOSIN HCL 0.4 MG CAPSULE PO ×2 (10:26→21:55)
[2021-01-22] MEDS: NICOTINE (*PBKC) 21 MG PATCH 1 PATCH TRANSDERM (10:26)
--- NOTE | 2021-01-22 11:03 | PCDIET ---
Nutrition Follow-Up Complete: Nutrition Diagnosis: Inadequate oral intake related to decreased appetite as evidenced by intakes less than 50% of meals. Nutrition Goal: Patient to consume 75% of meals/supplements or greater. Goal in progress. Patient with average of 68% of meals consumed since 01/19/21. Reports taking Glucerna consistently which is being provided TID with meals. Remains on 1L fluid restricted, diabetic diet. Last recorded weight is 58 kg. Recommend obtaining new weight. Bowel Motility: Last documented BM on 01/19/21. Labs Reviewed: Glu (131) Meds Noted: [place], Coreg, Colace, Lasix, Glucotrol, Protonix, Miralax, KCl, Crestor, NS at 75mL/hr Additional Notes: Patient states physician plans to discontinue IV fluids today. He reports also requesting an increase in fluid allowance. 1500-1800mL fluid per day would be appropriate. Will continue to monitor with same goal. Nutrition Monitoring and Evaluation: Follow up in 5 days.
[2021-01-22 11:52] LABS: Glucose Point of Care 168 mg/dl (65-105)
--- NOTE | 2021-01-22 12:55 | PM.IMPN ---
Progress Note: A&P Assessment and Plan (1) Hyponatremia: Code(s): E87.1 - Hypo-osmolality and hyponatremia Status: Acute Assessment and Plan: Hold diuretics. Most likely related to dehydration DC IV fluid oral fluid restriction has adjusted to 2000 mL per day Repeat BMP in the morning . (2) Above knee amputation of left lower extremity: Code(s): S78.112A - Complete traumatic amputation at level between left hip and knee, initial encounter Status: Acute Assessment and Plan: Continue physical therapy. (3) Phantom pain after amputation of lower extremity: Code(s): G54.6 - Phantom limb syndrome with pain Status: Acute Assessment and Plan: Pain control (4) Chronic kidney disease, stage 3: Code(s): N18.30 - Chronic kidney disease, stage 3 unspecified Status: Acute Assessment and Plan: Repeat BMP in a.m. stable avoid nephrotoxic medication (5) COPD (chronic obstructive pulmonary disease): Code(s): J44.9 - Chronic obstructive pulmonary disease, unspecified Status: Acute Assessment and Plan: States stable on medication. (6) Hypertension: Code(s): I10 - Essential (primary) hypertension Status: Acute Assessment and Plan: Stable on medication. (7) Hyperlipidemia: Code(s): E78.5 - Hyperlipidemia, unspecified Status: Acute Assessment and Plan: Stable on medication. (8) Peripheral vascular disease: Code(s): I73.9 - Peripheral vascular disease, unspecified Status: Acute Assessment and Plan: Stable on medication. Subjective Date/time seen: 01/22/21 12:55 Interval history: Patient seen and examined Patient feels better today dizziness has resolved DC IV fluid Patient denies fever headache chest pain shortness of breath I am seeing the patient for dehydration Exam Narrative: Exam Narrative: Alert looks dehydrated Chest no wheeze crackles Abdomen nontender nondistended CVS S1 + S2 Lower extremity edema . Objective Data Vital Signs Vital Signs: Vital Signs - 24 hr 01/21/21 13:04 01/21/21 14:00 01/21/21 22:00 Temperature 97.5 F L 97.9 F Pulse Rate 78 75 60 Respiratory Rate 20 18 Blood Pressure 121/48 L 165/57 H Pulse Oximetry 100 99 01/21/21 22:06 01/22/21 06:00 01/22/21 08:00 Temperature 96.9 F L Pulse Rate 75 65 Respiratory Rate 16 Blood Pressure 150/58 H Pulse Oximetry 96 96 Intake/Output Intake/Output: Intake & Output 01/19/21 01/20/21 01/21/21 01/22/21 23:59 23:59 23:59 23:59 Intake Total 720 4010 1960 1260 Output Total 1710 1480 1950 Balance 720 2300 480 -690 Meds/Results Medications: Active Medications Generic Name Dose Route Start Last Admin Trade Name Freq PRN Reason Stop Dose Admin Acetaminophen 650 mg 01/18/21 14:13 01/22/21 06:48 Acetaminophen 325 Mg Tablet PO 650 mg Q6H PRN Administration h/a, mild pain, fever Hydrocodone Bitart/Acetaminophen 1 tab 01/18/21 14:13 01/20/21 14:19 Hydrocodone/Acetaminophen (*Crx) 7.5-325 Mg Tablet PO 1 tab Q4H PRN Administration Pain (Scale Score 7-10) Aspirin 81 mg 01/19/21 09:00 01/22/21 08:24 Aspirin 81 Mg Enteric Tablet PO 81 mg DAILY JESS Administration Carvedilol 3.125 mg 01/20/21 12:00 01/21/21 22:06 Carvedilol 3.125 Mg Tablet PO 3.125 mg 1200,2100 JESS Administration Clotrimazole 1 applic 01/19/21 09:00 01/22/21 08:27 Betamethasone/Clotrimazole Cr 15 Gm Tube TOPICAL 1 applic Q12HR JESS Administration Dextrose 12.5 gm 01/18/21 12:30 Dextrose 50% 25 Gm/50 Ml Syringe IV PUSH PRN PRN Hypoglycemia Protocol Docusate Sodium 100 mg 01/18/21 17:00 01/22/21 08:25 Docusate Sodium 100 Mg Capsule PO 100 mg BID JESS Administration Furosemide 40 mg 01/18/21 17:00 01/22/21 08:25 Furosemide 40 Mg Tablet PO 40 mg BID JESS Administration Gabapentin 100 mg 01/20/21 17:00
--- NOTE | 2021-01-22 13:12 | WPDNEURORHBP ---
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 Patient was admitted on 01/05/2021 to [facility] ED with complaints of dizziness and generalized weakness. Patient was found to have an urinary tract infection and was placed on IV antibiotics. Patient was cleared for surgery and underwent a left AKA on 01/12/[address] Jung . [facility] course: UTI treated with Rocephin 01/12/21 L AKA Cardiology was consulted to adjust meds. Patient has a history of pacemaker due to Afib/flutter and recently had an ablation. Patient's Eliquis has been discontinued with successful NSR after ablation. Post op includes hypotension, urinary retention with Segal being discontinued on 01/13, postoperative pain, hyponatremia, hyperglycemia with A1c 6. leukocytosis, and acute blood loss anemia. Postop pain was controlled with IV Dilaudid OPTOELECTRONICS ENGINEER which was removed on 01/16 and currently is on [place]. patient's home medicine of glipizide was discontinued upon transfer to rehab. Patient will remain on heparin 5000 units q.8 hours for prophylaxis of DVT. Patient will remain on aspirin and beta-silas. Therapy was initiated at the acute care facility and the patient transferred to us from [facility] on 01/18/21 01/20/21 Patient alert and talkative this afternoon. Patient with ongoing complaints of pain. He states that his pain was not controlled at home. Will d/c SSI and resume glipizide at 2.5 mg XL daily. Appreciate hospitalist consult 01/21/21 Patient in good spirits. patient slept well. Incision shows good approximation scant drainage. Right foot wounds are improving. 01/22/21 Patient complaining of indigestion. Patient is on Protonix. Patient is pleased with gabapentin and pain mgmt and is sleeping at night. Review of Systems Review of Systems: All systems reviewed & are unremarkable except as noted in HPI and below Constitutional: Constitutional: Reports weakness Eyes: Eyes: Reports no additional eye complaints Cardiovascular: Cardiovascular: Reports no additional cardiovascular complaints Gastrointestinal: Gastrointestinal: Reports heartburn Neurologic: Reports weakness Functional Status Ambulation Ability Ability to Ambulate 10 Feet: Minimum Assistance X 1 Ambulation Assistive Devices: Walker, Wheeled Exam Narrative: Exam Narrative: Head normocephalic, EOMI, kyphotic posture. Heart rate and rhythm is regular. Lung sounds are distant. Abdomen is soft nontender. Transfers are CGA/MIn. Patient able to hop short distances with min assist. Endurance is better. Objective Data Vital Signs Vital Signs: Vital Signs - 24 hr 01/21/21 14:00 01/21/21 22:00 01/21/21 22:06 Temperature 36.4 C L 36.6 C Pulse Rate 75 60 75 Respiratory Rate 20 18 Blood Pressure 121/48 L 165/57 H Pulse Oximetry 100 99 01/22/21 06:00 01/22/21 08:00 Temperature 36.1 C L Pulse Rate 65 Respiratory Rate 16 Blood Pressure 150/58 H Pulse Oximetry 96 96 Intake/Output Intake/Output: Intake & Output 01/19/21 01/20/21 01/21/21 01/22/21 23:59 23:59 23:59 23:59 Intake Total 720 4010 1960 1260 Output Total 1710 1480 1950 Balance 720 2300 480 -690 Meds/Results Medications: Active Medications Generic Name Dose Route Start Last Admin Trade Name Freq PRN Reason Stop Dose Admin Acetaminophen
[2021-01-22 13:18] LABS: Alanine Aminotransferase 25 U/L (4-50); Albumin Level 3.5 g/dL (3.5-5.1); Alkaline Phosphatase 66 U/L (38-126); Anion Gap 7 mmol/L (8-16); Aspartate Amino Transferase 34 U/L (17-59); Bilirubin,Total 0.6 mg/dL (0.2-1.3); Blood Urea Nitrogen 13 mg/dL (9-20); Calcium 9.6 mg/dL (8.4-10.2); Carbon Dioxide 29 mmol/L (22-30); Chloride 101 mmol/L (98-107); Estimated CRCL calculation 66 ml/min; Estimated Glomerular Filt Rate > 60; Glucose 140 mg/dL (75-110); Sodium 137 mmol/L (137-145)
[2021-01-22 13:19] VITALS: PULSE 65
[2021-01-22] MEDS: carvediloL 3.125 MG TABLET PO ×2 (13:19→21:55)
[2021-01-22] MEDS: HYDROcodone/acetaminophen (*CRX) 7.5-325 MG TABLET 1 TAB PO (13:20)
[2021-01-22 14:00] VITALS: BP 122/56; PULSE 74; RESP 14; TEMP 36.4; O2SAT 100
[2021-01-22] MEDS: PANTOPRAZOLE 40 MG TABLET PO (16:23)
[2021-01-22 16:34] LABS: Glucose Point of Care 212 mg/dl (65-105)
[2021-01-22 20:15] LABS: Glucose Point of Care 207 mg/dl (65-105)
[2021-01-22 21:55] VITALS: PULSE 61
[2021-01-22] MEDS: ROSUVASTATIN 10 MG TABLET 20 MG PO (21:55)
[2021-01-22 22:00] VITALS: BP 111/56; PULSE 59; RESP 20; TEMP 36.6; O2SAT 100
[2021-01-22] MEDS: HYDROcodone/acetaminophen (*CRX) 5-325 MG TABLET 1 TAB PO (22:53)
[2021-01-23 06:00] VITALS: BP 114/49; PULSE 71; RESP 18; TEMP 36.2; O2SAT 98
[2021-01-23] MEDS: HEPARIN SODIUM 5,000 UNITS/ML VIAL 5000 UNITS SUB-Q ×3 (06:07→21:02)
[2021-01-23 06:51] LABS: Glucose Point of Care 104 mg/dl (65-105)
[2021-01-23] MEDS: HYDROcodone/acetaminophen (*CRX) 5-325 MG TABLET 1 TAB PO (08:23)
[2021-01-23] MEDS: POTASSIUM CHLORIDE 20 MEQ PACKET (FOR LIQUID) PO (08:28)
[2021-01-23] MEDS: glipiZIDE XL 2.5 MG TAB.ER.24 PO (08:29)
[2021-01-23] MEDS: ASPIRIN 81 MG ENTERIC TABLET PO (08:29)
[2021-01-23] MEDS: BETAMETHASONE/CLOTRIMAZOLE CR 15 GM TUBE 1 APPLIC TOPICAL ×2 (08:29→21:00)
[2021-01-23] MEDS: SILVERGEL (ELTA) 45 ML 1 APPLIC TOPICAL (08:29)
[2021-01-23] MEDS: NICOTINE (*PBKC) 21 MG PATCH 1 PATCH TRANSDERM (08:30)
[2021-01-23] MEDS: DOCUSATE SODIUM 100 MG CAPSULE PO ×2 (08:30→17:23)
[2021-01-23] MEDS: GABAPENTIN 100 MG CAPSULE PO ×4 (08:30→21:02)
[2021-01-23] MEDS: FUROSEMIDE 40 MG TABLET PO (08:30)
[2021-01-23] MEDS: LIDOCAINE 5% PATCH 2 PATCH TRANSDERM (08:30)
[2021-01-23] MEDS: TAMSULOSIN HCL 0.4 MG CAPSULE PO ×2 (08:31→21:02)
--- NOTE | 2021-01-23 09:29 | WPDNEURORHBP ---
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 Patient was admitted on 01/05/2021 to [facility] ED with complaints of dizziness and generalized weakness. Patient was found to have an urinary tract infection and was placed on IV antibiotics. Patient was cleared for surgery and underwent a left AKA on 01/12/[address] Jung . [facility] course: UTI treated with Rocephin 01/12/21 L AKA Cardiology was consulted to adjust meds. Patient has a history of pacemaker due to Afib/flutter and recently had an ablation. Patient's Eliquis has been discontinued with successful NSR after ablation. Post op includes hypotension, urinary retention with Segal being discontinued on 01/13, postoperative pain, hyponatremia, hyperglycemia with A1c 6. leukocytosis, and acute blood loss anemia. Postop pain was controlled with IV Dilaudid THREE DIMENSIONAL ART INSTRUCTOR which was removed on 01/16 and currently is on [place]. patient's home medicine of glipizide was discontinued upon transfer to rehab. Patient will remain on heparin 5000 units q.8 hours for prophylaxis of DVT. Patient will remain on aspirin and beta-silas. Therapy was initiated at the acute care facility and the patient transferred to us from [facility] on 01/18/21 01/20/21 Patient alert and talkative this afternoon. Patient with ongoing complaints of pain. He states that his pain was not controlled at home. Will d/c SSI and resume glipizide at 2.5 mg XL daily. His home med was 5mg Appreciate hospitalist consult 01/21/21 Patient in good spirits. patient slept well. Incision shows good approximation scant drainage. Right foot wounds are improving. 01/22/21 Patient complaining of indigestion. Patient is on Protonix. Patient is pleased with gabapentin and pain mgmt and is sleeping at night. 01/23/21 Patient compliains of severe stump pain and inability to sleep. Will increase neurontin Review of Systems Review of Systems: All systems reviewed & are unremarkable except as noted in HPI and below Functional Status Ambulation Ability Ability to Ambulate 10 Feet: Minimum Assistance X 1 Ambulation Assistive Devices: Walker, Wheeled Transfers Ability Ability to Transfer In/Out of Chair: Contact Guard Exam Narrative: Exam Narrative: Head normocephalic, EOMI, kyphotic posture. Heart rate and rhythm is regular. Lung sounds are distant. Abdomen is soft nontender. Transfers are CGA/MIn. Patient able to hop short distances with min assist. Endurance is better. Objective Data Vital Signs Vital Signs: Vital Signs - 24 hr 01/22/21 13:19 01/22/21 14:00 01/22/21 21:55 Temperature 36.4 C Pulse Rate 65 74 61 Respiratory Rate 14 Blood Pressure 122/56 L Pulse Oximetry 100 01/22/21 22:00 01/23/21 06:00 Temperature 36.6 C 36.2 C L Pulse Rate 59 L 71 Respiratory Rate 20 18 Blood Pressure 111/56 L 114/49 L Pulse Oximetry 100 98 Intake/Output Intake/Output: Intake & Output 01/20/21 01/21/21 01/22/21 01/23/21 23:59 23:59 23:59 23:59 Intake Total 4010 1960 1740 Output Total 1710 1480 1950 Balance 2300 480 -210 Meds/Results Medications: Active Medications Generic Name Dose Route Start Last Admin Trade Name Freq PRN Reason Stop Dose Admin Acetaminophen 650 mg 01/18/21 14:13 01/22/21 06:48 Acetaminophen 325 Mg Tablet PO 650 mg Q6H
--- NOTE | 2021-01-23 11:38 | PM.IMPN ---
Progress Note: A&P Assessment and Plan (1) Hyponatremia: Code(s): E87.1 - Hypo-osmolality and hyponatremia Status: Acute Assessment and Plan: Most likely related to dehydration DC IV fluid oral fluid restriction has adjusted to 2200 mL per day Repeat BMP in the morning Decrease Lasix to 20 mg p.o. daily . (2) Above knee amputation of left lower extremity: Code(s): S78.112A - Complete traumatic amputation at level between left hip and knee, initial encounter Status: Acute Assessment and Plan: Continue physical therapy. (3) Phantom pain after amputation of lower extremity: Code(s): G54.6 - Phantom limb syndrome with pain Status: Acute Assessment and Plan: Pain control (4) Chronic kidney disease, stage 3: Code(s): N18.30 - Chronic kidney disease, stage 3 unspecified Status: Acute Assessment and Plan: Repeat BMP in a.m. stable avoid nephrotoxic medication (5) COPD (chronic obstructive pulmonary disease): Code(s): J44.9 - Chronic obstructive pulmonary disease, unspecified Status: Acute Assessment and Plan: States stable on medication. (6) Hypertension: Code(s): I10 - Essential (primary) hypertension Status: Acute Assessment and Plan: Stable on medication. (7) Hyperlipidemia: Code(s): E78.5 - Hyperlipidemia, unspecified Status: Acute Assessment and Plan: Stable on medication. (8) Peripheral vascular disease: Code(s): I73.9 - Peripheral vascular disease, unspecified Status: Acute Assessment and Plan: Stable on medication. Additional Plan Today patient sodium is 137 Will continue with fluid restriction repeat sodium in the morning anticipate DC IV fluid Will continue current treatment and physical therapy Subjective Date/time seen: 01/23/21 11:38 Interval history: Patient seen and examined Patient feels better today dizziness has resolved DC IV fluid Patient denies fever headache chest pain shortness of breath I am seeing the patient for dehydration Exam Narrative: Exam Narrative: Alert looks dehydrated Chest no wheeze crackles Abdomen nontender nondistended CVS S1 + S2 Lower extremity edema . Objective Data Vital Signs Vital Signs: Vital Signs - 24 hr 01/22/21 13:19 01/22/21 14:00 01/22/21 21:55 Temperature 97.6 F Pulse Rate 65 74 61 Respiratory Rate 14 Blood Pressure 122/56 L Pulse Oximetry 100 01/22/21 22:00 01/23/21 06:00 Temperature 97.9 F 97.2 F L Pulse Rate 59 L 71 Respiratory Rate 20 18 Blood Pressure 111/56 L 114/49 L Pulse Oximetry 100 98 Intake/Output Intake/Output: Intake & Output 01/20/21 01/21/21 01/22/21 01/23/21 23:59 23:59 23:59 23:59 Intake Total 4010 1960 1740 240 Output Total 1710 1480 1950 Balance 2300 480 -210 240 Meds/Results Medications: Active Medications Generic Name Dose Route Start Last Admin Trade Name Freq PRN Reason Stop Dose Admin Acetaminophen 650 mg 01/18/21 14:13 01/22/21 06:48 Acetaminophen 325 Mg Tablet PO 650 mg Q6H PRN Administration h/a, mild pain, fever Hydrocodone Bitart/Acetaminophen 1 tab 01/22/21 13:56 01/23/21 08:23 Hydrocodone/Acetaminophen (*Crx) 5-325 Mg Tablet PO 1 tab Q6H PRN Administration Pain Rated 4-6 Aspirin 81 mg 01/19/21 09:00 01/23/21 08:29 Aspirin 81 Mg Enteric Tablet PO 81 mg DAILY JESS Administration Carvedilol 3.125 mg 01/20/21 12:00 01/22/21 21:55 Carvedilol 3.125 Mg Tablet PO 3.125 mg 1200,2100 JESS Administration Clotrimazole 1 applic 01/19/21 09:00 01/23/21 08:29 Betamethasone/Clotrimazole Cr 15 Gm Tube TOPICAL 1 applic Q12HR JESS Administration Dextrose 12.5 gm 01/18/21 12:30 Dextrose 50% 25 Gm/50 Ml Syringe IV PUSH PRN PRN Hypoglycemia Protocol Docusate Sodium 100 mg 01/18/21 17:00 01/23/21 08:30 Docusate Sodium 100 Mg Capsule PO 100 mg BID
[2021-01-23 12:03] LABS: Glucose Point of Care 139 mg/dl (65-105)
[2021-01-23 12:23] VITALS: PULSE 71
[2021-01-23] MEDS: carvediloL 3.125 MG TABLET PO ×2 (12:23→21:00)
[2021-01-23 14:00] VITALS: BP 118/62; PULSE 90; RESP 18; TEMP 36.3; O2SAT 100
[2021-01-23 14:46] LABS: Anion Gap 7 mmol/L (8-16); Blood Urea Nitrogen 16 mg/dL (9-20); Calcium 9.9 mg/dL (8.4-10.2); Carbon Dioxide 32 mmol/L (22-30); Chloride 98 mmol/L (98-107); Estimated CRCL calculation 53 ml/min; Estimated Glomerular Filt Rate > 60; Glucose 185 mg/dL (75-110); Potassium 4.1 mmol/L (3.4-5.0); Sodium 137 mmol/L (137-145)
[2021-01-23 16:32] LABS: Glucose Point of Care 151 mg/dl (65-105)
[2021-01-23] MEDS: PANTOPRAZOLE 40 MG TABLET PO (17:21)
[2021-01-23 20:00] VITALS: PULSE 62; RESP 16; O2SAT 98
[2021-01-23 20:59] VITALS: BP 136/51; PULSE 62; RESP 16; TEMP 36.4; O2SAT 98
[2021-01-23 21:00] VITALS: PULSE 62
[2021-01-23] MEDS: ROSUVASTATIN 10 MG TABLET 20 MG PO (21:01)
[2021-01-23 22:07] LABS: Glucose Point of Care 214 mg/dl (65-105)
[2021-01-24 05:44] VITALS: BP 137/57; PULSE 62; RESP 16; TEMP 36.1; O2SAT 97
[2021-01-24] MEDS: HEPARIN SODIUM 5,000 UNITS/ML VIAL 5000 UNITS SUB-Q ×3 (06:40→21:10)
[2021-01-24 06:52] LABS: Glucose Point of Care 150 mg/dl (65-105)
[2021-01-24] MEDS: HYDROcodone/acetaminophen (*CRX) 5-325 MG TABLET 1 TAB PO (08:29)
[2021-01-24] MEDS: DOCUSATE SODIUM 100 MG CAPSULE PO ×2 (08:31→17:43)
[2021-01-24] MEDS: glipiZIDE XL 2.5 MG TAB.ER.24 PO (08:31)
[2021-01-24] MEDS: GABAPENTIN 100 MG CAPSULE PO (08:31)
[2021-01-24] MEDS: LIDOCAINE 5% PATCH 2 PATCH TRANSDERM (08:31)
[2021-01-24] MEDS: POTASSIUM CHLORIDE 20 MEQ TABLET.ER PO (08:31)
[2021-01-24] MEDS: NICOTINE (*PBKC) 21 MG PATCH 1 PATCH TRANSDERM (08:32)
[2021-01-24] MEDS: TAMSULOSIN HCL 0.4 MG CAPSULE PO ×2 (08:32→21:09)
[2021-01-24] MEDS: SILVERGEL (ELTA) 45 ML 1 APPLIC TOPICAL (08:32)
[2021-01-24] MEDS: FUROSEMIDE 20 MG TABLET PO (08:32)
[2021-01-24] MEDS: ASPIRIN 81 MG ENTERIC TABLET PO (08:32)
[2021-01-24] MEDS: BETAMETHASONE/CLOTRIMAZOLE CR 15 GM TUBE 1 APPLIC TOPICAL ×2 (08:32→21:06)
--- NOTE | 2021-01-24 08:39 | WPDNEURORHBP ---
Subjective Date/time seen: 01/24/21 08:39 Interval history: Harris is pleased with his overall progress with therapy. Patient is very complimentary of the program. Patient still incisional and phantom pain. Review of Systems Review of Systems: All systems reviewed & are unremarkable except as noted in HPI and below Functional Status Ambulation Ability Ability to Ambulate 10 Feet: Contact Guard Ambulation Assistive Devices: Walker, Wheeled Transfers Ability Ability to Transfer In/Out of Chair: Contact Guard Exam Narrative: Exam Narrative: Head normocephalic, EOMI, kyphotic posture. Heart rate and rhythm is regular. Lung sounds are distant. Abdomen is soft nontender. Endurance is better. Objective Data Vital Signs Vital Signs: Vital Signs - 24 hr 01/23/21 12:23 01/23/21 14:00 01/23/21 20:00 Temperature 36.3 C L Pulse Rate 71 90 62 Respiratory Rate 18 16 Blood Pressure 118/62 Pulse Oximetry 100 98 01/23/21 20:59 01/23/21 21:00 01/24/21 05:44 Temperature 36.4 C L 36.1 C L Pulse Rate 62 62 62 Respiratory Rate 16 16 Blood Pressure 136/51 L 137/57 L Pulse Oximetry 98 97 Intake/Output Intake/Output: Intake & Output 01/21/21 01/22/21 01/23/21 01/24/21 23:59 23:59 23:59 23:59 Intake Total 1960 1740 720 300 Output Total 1480 1950 900 Balance 480 -210 720 -600 Meds/Results Medications: Active Medications Generic Name Dose Route Start Last Admin Trade Name Freq PRN Reason Stop Dose Admin Acetaminophen 650 mg 01/18/21 14:13 01/22/21 06:48 Acetaminophen 325 Mg Tablet PO 650 mg Q6H PRN Administration h/a, mild pain, fever Hydrocodone Bitart/Acetaminophen 1 tab 01/22/21 13:56 01/24/21 08:29 Hydrocodone/Acetaminophen (*Crx) 5-325 Mg Tablet PO 1 tab Q6H PRN Administration Pain Rated 4-6 Aspirin 81 mg 01/19/21 09:00 01/24/21 08:32 Aspirin 81 Mg Enteric Tablet PO 81 mg DAILY JESS Administration Carvedilol 3.125 mg 01/20/21 12:00 01/23/21 21:00 Carvedilol 3.125 Mg Tablet PO 3.125 mg 1200,2100 JESS Administration Clotrimazole 1 applic 01/19/21 09:00 01/24/21 08:32 Betamethasone/Clotrimazole Cr 15 Gm Tube TOPICAL 1 applic Q12HR JESS Administration Dextrose 12.5 gm 01/18/21 12:30 Dextrose 50% 25 Gm/50 Ml Syringe IV PUSH PRN PRN Hypoglycemia Protocol Docusate Sodium 100 mg 01/18/21 17:00 01/24/21 08:31 Docusate Sodium 100 Mg Capsule PO 100 mg BID JESS Administration Furosemide 20 mg 01/24/21 09:00 01/24/21 08:32 Furosemide 20 Mg Tablet PO 20 mg DAILY JESS Administration Gabapentin 100 mg 01/20/21 17:00 01/24/21 08:31 Gabapentin 100 Mg Capsule PO 100 mg QID JESS Administration Glipizide 2.5 mg 01/21/21 08:00 01/24/21 08:31 Glipizide Xl 2.5 Mg Tab.Er.24 PO 2.5 mg DAILY@0800 JESS Administration Glucagon 1 mg 01/18/21 12:30 Glucagon For Inj 1 Mg Vial IM PRN PRN Hypoglycemia Protocol Glucose 15 gm 01/18/21 12:30 Glucose Oral Gel 15 Gm Of Glucse In 37.5 Gm Tube PO PRN PRN Hypoglycemia Protocol Heparin Sodium (Porcine) 5,000 units 01/18/21 14:15 01/24/21 06:40 Heparin Sodium 5,000 Units/Ml Vial SUB-Q 5,000 units Q8HR JESS Administration Dextrose 1,000 mls @ 100 mls/hr 01/18/21 12:30 Dextrose 5% 1,000 Ml IVPB PRN PRN Hypoglycemia Protocol Lidocaine 2 patch 01/20/21 09:00 01/24/21 08:31 Lidocaine 5% Patch TRANSDERM 2 patch DAILY JESS Administration Nicotine 1 patch 01/19/21 09:00 01/24/21 08:32 Nicotine (*Pbkc) 21 Mg Patch TRANSDERM 1 patch DAILY JESS Administration Pantoprazole Sodium 40 mg 01/18/21 16:30 01/23/21 17:21 Pantoprazole 40 Mg Tablet PO 40 mg Q24H JESS Administration Polyethylene Glycol 17 gm 01/18/21 14:13 Polyethylene Glycol 3350 17 Gm Powd.Pack PO DAILY PRN Constipation Potassium Chloride 20 meq 01/24/21 08:00 01/24/21 08:31
--- NOTE | 2021-01-24 10:18 | PM.IMPN ---
Progress Note: A&P Assessment and Plan (1) Hyponatremia: Code(s): E87.1 - Hypo-osmolality and hyponatremia Status: Acute Assessment and Plan: Most likely related to dehydration DC IV fluid DC fluid restriction Benign PAPERHANGER PIPE Decrease Lasix to 20 mg p.o. daily . (2) Above knee amputation of left lower extremity: Code(s): S78.112A - Complete traumatic amputation at level between left hip and knee, initial encounter Status: Acute Assessment and Plan: Continue physical therapy. (3) Phantom pain after amputation of lower extremity: Code(s): G54.6 - Phantom limb syndrome with pain Status: Acute Assessment and Plan: Pain control (4) Chronic kidney disease, stage 3: Code(s): N18.30 - Chronic kidney disease, stage 3 unspecified Status: Acute Assessment and Plan: Repeat BMP in a.m. stable avoid nephrotoxic medication (5) COPD (chronic obstructive pulmonary disease): Code(s): J44.9 - Chronic obstructive pulmonary disease, unspecified Status: Acute Assessment and Plan: States stable on medication. (6) Hypertension: Code(s): I10 - Essential (primary) hypertension Status: Acute Assessment and Plan: Stable on medication. (7) Hyperlipidemia: Code(s): E78.5 - Hyperlipidemia, unspecified Status: Acute Assessment and Plan: Stable on medication. (8) Peripheral vascular disease: Code(s): I73.9 - Peripheral vascular disease, unspecified Status: Acute Assessment and Plan: Stable on medication. Subjective Date/time seen: 01/24/21 10:18 Interval history: Patient seen and examined Patient feels better today dizziness has resolved DC IV fluid Follow-up BMP Improved Patient denies fever headache chest pain shortness of breath I am seeing the patient for dehydration Exam Narrative: Exam Narrative: Alert looks dehydrated Chest no wheeze crackles Abdomen nontender nondistended CVS S1 + S2 Lower extremity edema . Objective Data Vital Signs Vital Signs: Vital Signs - 24 hr 01/23/21 12:23 01/23/21 14:00 01/23/21 20:00 Temperature 97.4 F L Pulse Rate 71 90 62 Respiratory Rate 18 16 Blood Pressure 118/62 Pulse Oximetry 100 98 01/23/21 20:59 01/23/21 21:00 01/24/21 05:44 Temperature 97.5 F L 96.9 F L Pulse Rate 62 62 62 Respiratory Rate 16 16 Blood Pressure 136/51 L 137/57 L Pulse Oximetry 98 97 Intake/Output Intake/Output: Intake & Output 01/21/21 01/22/21 01/23/21 01/24/21 23:59 23:59 23:59 23:59 Intake Total 1960 1740 720 540 Output Total 1480 1950 900 Balance 480 -210 720 -360 Meds/Results Medications: Active Medications Generic Name Dose Route Start Last Admin Trade Name Freq PRN Reason Stop Dose Admin Acetaminophen 650 mg 01/18/21 14:13 01/22/21 06:48 Acetaminophen 325 Mg Tablet PO 650 mg Q6H PRN Administration h/a, mild pain, fever Hydrocodone Bitart/Acetaminophen 1 tab 01/22/21 13:56 01/24/21 08:29 Hydrocodone/Acetaminophen (*Crx) 5-325 Mg Tablet PO 1 tab Q6H PRN Administration Pain Rated 4-6 Aspirin 81 mg 01/19/21 09:00 01/24/21 08:32 Aspirin 81 Mg Enteric Tablet PO 81 mg DAILY JESS Administration Carvedilol 3.125 mg 01/20/21 12:00 01/23/21 21:00 Carvedilol 3.125 Mg Tablet PO 3.125 mg 1200,2100 JESS Administration Clotrimazole 1 applic 01/19/21 09:00 01/24/21 08:32 Betamethasone/Clotrimazole Cr 15 Gm Tube TOPICAL 1 applic Q12HR JESS Administration Dextrose 12.5 gm 01/18/21 12:30 Dextrose 50% 25 Gm/50 Ml Syringe IV PUSH PRN PRN Hypoglycemia Protocol Docusate Sodium 100 mg 01/18/21 17:00 01/24/21 08:31 Docusate Sodium 100 Mg Capsule PO 100 mg BID JESS Administration Furosemide 20 mg 01/24/21 09:00 01/24/21 08:32 Furosemide 20 Mg Tablet PO 20 mg DAILY JESS Administration Gabapentin 200 mg 01/24/21 13:00 Gabapentin
[2021-01-24 12:20] LABS: Glucose Point of Care 154 mg/dl (65-105)
[2021-01-24 12:58] VITALS: PULSE 62
[2021-01-24] MEDS: GABAPENTIN 100 MG CAPSULE 200 MG PO ×2 (12:58→17:43)
[2021-01-24] MEDS: carvediloL 3.125 MG TABLET PO ×2 (12:58→21:07)
[2021-01-24 13:37] LABS: Anion Gap 7 mmol/L (8-16); Blood Urea Nitrogen 15 mg/dL (9-20); Calcium 10.2 mg/dL (8.4-10.2); Carbon Dioxide 31 mmol/L (22-30); Chloride 98 mmol/L (98-107); Estimated CRCL calculation 53 ml/min; Estimated Glomerular Filt Rate > 60; Glucose 158 mg/dL (75-110); Potassium 4.6 mmol/L (3.4-5.0); Sodium 136 mmol/L (137-145)
[2021-01-24 14:00] VITALS: BP 158/65; PULSE 75; RESP 18; TEMP 36.6; O2SAT 97
[2021-01-24 17:08] LABS: Glucose Point of Care 148 mg/dl (65-105)
[2021-01-24] MEDS: PANTOPRAZOLE 40 MG TABLET PO (17:43)
[2021-01-24 20:00] VITALS: PULSE 64; RESP 16; O2SAT 97
[2021-01-24 21:07] VITALS: PULSE 83
[2021-01-24] MEDS: ROSUVASTATIN 10 MG TABLET 20 MG PO (21:09)
[2021-01-24] MEDS: GABAPENTIN 300 MG CAPSULE PO (21:11)
[2021-01-24 21:54] LABS: Glucose Point of Care 206 mg/dl (65-105)
[2021-01-24 22:00] VITALS: BP 155/46; PULSE 64; RESP 16; TEMP 36.7; O2SAT 97
[2021-01-24] MEDS: ACETAMINOPHEN 325 MG TABLET 650 MG PO (23:53)
[2021-01-25] MEDS: HYDROcodone/acetaminophen (*CRX) 5-325 MG TABLET 1 TAB PO (04:37)
[2021-01-25] MEDS: HEPARIN SODIUM 5,000 UNITS/ML VIAL 5000 UNITS SUB-Q ×3 (05:58→21:30)
[2021-01-25 06:00] VITALS: BP 133/56; PULSE 62; RESP 16; TEMP 36.5; O2SAT 97
[2021-01-25 06:12] LABS: Glucose Point of Care 137 mg/dl (65-105)
[2021-01-25] MEDS: NICOTINE (*PBKC) 21 MG PATCH 1 PATCH TRANSDERM (08:52)
[2021-01-25] MEDS: ASPIRIN 81 MG ENTERIC TABLET PO (08:52)
[2021-01-25] MEDS: TAMSULOSIN HCL 0.4 MG CAPSULE PO ×2 (08:52→21:31)
[2021-01-25] MEDS: POTASSIUM CHLORIDE 20 MEQ TABLET.ER PO (08:52)
[2021-01-25] MEDS: LIDOCAINE 5% PATCH 2 PATCH TRANSDERM (08:52)
[2021-01-25] MEDS: glipiZIDE XL 2.5 MG TAB.ER.24 PO (08:53)
[2021-01-25] MEDS: BETAMETHASONE/CLOTRIMAZOLE CR 15 GM TUBE 1 APPLIC TOPICAL ×2 (08:53→21:33)
[2021-01-25] MEDS: SILVERGEL (ELTA) 45 ML 1 APPLIC TOPICAL (08:53)
[2021-01-25] MEDS: GABAPENTIN 100 MG CAPSULE 200 MG PO ×3 (08:53→18:08)
[2021-01-25] MEDS: FUROSEMIDE 20 MG TABLET PO (08:53)
[2021-01-25] MEDS: DOCUSATE SODIUM 100 MG CAPSULE PO ×2 (08:53→18:08)
[2021-01-25 09:00] VITALS: BP 102/50; PULSE 61; O2SAT 96
--- NOTE | 2021-01-25 09:10 | WPDNEURORHBP ---
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 Patient was admitted on 01/05/2021 to [facility] ED with complaints of dizziness and generalized weakness. Patient was found to have an urinary tract infection and was placed on IV antibiotics. Patient was cleared for surgery and underwent a left AKA on 01/12/[address] Jung . [facility] course: UTI treated with Rocephin 01/12/21 L AKA Cardiology was consulted to adjust meds. Patient has a history of pacemaker due to Afib/flutter and recently had an ablation. Patient's Eliquis has been discontinued with successful NSR after ablation. Post op includes hypotension, urinary retention with Segal being discontinued on 01/13, postoperative pain, hyponatremia, hyperglycemia with A1c 6. leukocytosis, and acute blood loss anemia. Postop pain was controlled with IV Dilaudid ANSWERER which was removed on 01/16 and currently is on Central. patient's home medicine of glipizide was discontinued upon transfer to rehab. Patient will remain on heparin 5000 units q.8 hours for prophylaxis of DVT. Patient will remain on aspirin and beta-silas. Therapy was initiated at the acute care facility and the patient transferred to us from [facility] on 01/18/21 01/20/21 Patient alert and talkative this afternoon. Patient with ongoing complaints of pain. He states that his pain was not controlled at home. Will d/c SSI and resume glipizide at 2.5 mg XL daily. Appreciate hospitalist consult 01/21/21 Patient in good spirits. patient slept well. Incision shows good approximation scant drainage. Right foot wounds are improving. 01/22/21 Patient complaining of indigestion. Patient is on Protonix. Patient is pleased with gabapentin and pain mgmt and is sleeping at night. 01/25/21 patient complaining of phantom pain at night with inability to sleep. Will increase Neurontin from 300 mg to 400 mg at bedtime. Continue Neurontin during the daytime at 200 mg t.i.d. patient is pleased with his overall progress with therapy Review of Systems Review of Systems: All systems reviewed & are unremarkable except as noted in HPI and below Functional Status Ambulation Ability Ability to Ambulate 10 Feet: Independent Ambulation Assistive Devices: Walker, Wheeled Transfers Ability Ability to Transfer In/Out of Chair: Contact Guard Exam Narrative: Exam Narrative: Head normocephalic, EOMI, kyphotic posture. Heart rate and rhythm is regular. Lung sounds are distant. Abdomen is soft nontender. Endurance is better. patient is approaching independence with transfers. Harris is ambulating 10 ft with standby to independence. Objective Data Vital Signs Vital Signs: Vital Signs - 24 hr 01/24/21 12:58 01/24/21 14:00 01/24/21 20:00 Temperature 36.6 C Pulse Rate 62 75 64 Respiratory Rate 18 16 Blood Pressure 158/65 H Pulse Oximetry 97 97 01/24/21 21:07 01/24/21 22:00 01/25/21 06:00 Temperature 36.7 C 36.5 C Pulse Rate 83 64 62 Respiratory Rate 16 16 Blood Pressure 155/46 H 133/56 L Pulse Oximetry 97 97 Intake/Output Intake/Output: Intake & Output 01/22/21 01/23/21 01/24/21 01/25/21 23:59 23:59 23:59 23:59 Intake Total 2252 946 4222 720 Output Total 1950 1200 700 Balance -210 720 500 20 Meds/Results Medications: Active Medications Generic Name Dose Route Start L
--- NOTE | 2021-01-25 10:22 | PM.IMPN ---
Progress Note: A&P Assessment and Plan (1) Hyponatremia: Code(s): E87.1 - Hypo-osmolality and hyponatremia Status: Acute Assessment and Plan: Most likely related to dehydration DC IV fluid DC fluid restriction Follow-up BMP Resolved DC fluid restriction discussed with the nurse Decrease Lasix to 20 mg p.o. daily . (2) Above knee amputation of left lower extremity: Code(s): S78.112A - Complete traumatic amputation at level between left hip and knee, initial encounter Status: Acute Assessment and Plan: Continue physical therapy. (3) Phantom pain after amputation of lower extremity: Code(s): G54.6 - Phantom limb syndrome with pain Status: Acute Assessment and Plan: Pain control (4) Chronic kidney disease, stage 3: Code(s): N18.30 - Chronic kidney disease, stage 3 unspecified Status: Acute Assessment and Plan: Repeat BMP in a.m. stable avoid nephrotoxic medication (5) COPD (chronic obstructive pulmonary disease): Code(s): J44.9 - Chronic obstructive pulmonary disease, unspecified Status: Acute Assessment and Plan: States stable on medication. (6) Hypertension: Code(s): I10 - Essential (primary) hypertension Status: Acute Assessment and Plan: Stable on medication. (7) Hyperlipidemia: Code(s): E78.5 - Hyperlipidemia, unspecified Status: Acute Assessment and Plan: Stable on medication. (8) Peripheral vascular disease: Code(s): I73.9 - Peripheral vascular disease, unspecified Status: Acute Assessment and Plan: Stable on medication. Additional Plan Today patient sodium is 136 Will get CBC today Subjective Date/time seen: 01/25/21 10:22 Interval history: Patient seen and examined Patient feels better today dizziness has resolved DC IV fluid Follow-up BMP Will get CBC today Improved Patient denies fever headache chest pain shortness of breath I am seeing the patient for dehydration Exam Narrative: Exam Narrative: Alert looks dehydrated Chest no wheeze crackles Abdomen nontender nondistended CVS S1 + S2 Lower extremity edema . Objective Data Vital Signs Vital Signs: Vital Signs - 24 hr 01/24/21 12:58 01/24/21 14:00 01/24/21 20:00 Temperature 97.8 F Pulse Rate 62 75 64 Respiratory Rate 18 16 Blood Pressure 158/65 H Pulse Oximetry 97 97 01/24/21 21:07 01/24/21 22:00 01/25/21 06:00 Temperature 98.0 F 97.7 F Pulse Rate 83 64 62 Respiratory Rate 16 16 Blood Pressure 155/46 H 133/56 L Pulse Oximetry 97 97 Intake/Output Intake/Output: Intake & Output 01/22/21 01/23/21 01/24/21 01/25/21 23:59 23:59 23:59 23:59 Intake Total 2898 474 5667 720 Output Total 1950 1200 700 Balance -210 720 500 20 Meds/Results Medications: Active Medications Generic Name Dose Route Start Last Admin Trade Name Freq PRN Reason Stop Dose Admin Acetaminophen 650 mg 01/18/21 14:13 01/24/21 23:53 Acetaminophen 325 Mg Tablet PO 650 mg Q6H PRN Administration h/a, mild pain, fever Hydrocodone Bitart/Acetaminophen 1 tab 01/22/21 13:56 01/25/21 04:37 Hydrocodone/Acetaminophen (*Crx) 5-325 Mg Tablet PO 1 tab Q6H PRN Administration Pain Rated 4-6 Aspirin 81 mg 01/19/21 09:00 01/25/21 08:52 Aspirin 81 Mg Enteric Tablet PO 81 mg DAILY JESS Administration Carvedilol 3.125 mg 01/20/21 12:00 01/24/21 21:07 Carvedilol 3.125 Mg Tablet PO 3.125 mg 1200,2100 JESS Administration Clotrimazole 1 applic 01/19/21 09:00 01/25/21 08:53 Betamethasone/Clotrimazole Cr 15 Gm Tube TOPICAL 1 applic Q12HR JESS Administration Dextrose 12.5 gm 01/18/21 12:30 Dextrose 50% 25 Gm/50 Ml Syringe IV PUSH PRN PRN Hypoglycemia Protocol Docusate Sodium 100 mg 01/18/21 17:00 01/25/21 08:53 Docusate Sodium 100 Mg Capsule PO 100 mg BID JESS Administration Furosemide 20 mg
[2021-01-25 11:20] LABS: Basophils Absolute Auto 0.1 K/mm3 (0.0-0.1); Basophils Percent Auto 1.4 % (0.2-1.2); Eosinophils Absolute Auto 0.2 K/mm3 (0-0.3); Eosinophils Percent Auto 2.3 % (0-4.4); Hematocrit 35.1 % (42.0-52.0); Hemoglobin 11.4 g/dL (14.0-18.0); Immature Granulocyte Absolute 0.03 K/mm3 (0.00-0.031); Immature Granulocyte Percent A 0.4 % (0-0.5); Lymphocytes Percent Auto 13.8 % (18.3-44.2); Mean Corpuscular HGB Conc 32.5 g/dl (32-36); Mean Corpuscular Hemoglobin 31.3 pg (26-34); Mean Corpuscular Volume 96.4 fl (80-100); Mean Platelet Volume 9.9 fl (7.4-10.4); Monocytes Absolute Auto 0.8 K/mm3 (0.1-0.6); Monocytes Percent Auto 10.5 % (2.6-8.5); Neutrophils Absolute Auto 5.2 K/mm3 (1.3-6.7); Neutrophils Percent Auto 71.6 % (45.5-73.1); Platelet Count Result 323 k/mm3 (150-375); Red Blood Count 3.64 M/mm3 (4.6-6.20); Red Cell Distribution Width 14.7 % (11.5-14.5); White Blood Count 7.3 K/mm3 (4.5-10.0)
[2021-01-25 11:45] LABS: Glucose Point of Care 168 mg/dl (65-105)
[2021-01-25 12:20] VITALS: PULSE 62
[2021-01-25] MEDS: carvediloL 3.125 MG TABLET PO ×2 (12:20→21:31)
[2021-01-25 14:00] VITALS: BP 119/52; PULSE 64; RESP 14; TEMP 35.7; O2SAT 98
[2021-01-25 17:30] LABS: Glucose Point of Care 197 mg/dl (65-105)
[2021-01-25] MEDS: PANTOPRAZOLE 40 MG TABLET PO (18:08)
[2021-01-25 20:32] LABS: Glucose Point of Care 220 mg/dl (65-105)
[2021-01-25 21:31] VITALS: PULSE 66
[2021-01-25] MEDS: ROSUVASTATIN 10 MG TABLET 20 MG PO (21:31)
[2021-01-25] MEDS: GABAPENTIN 400 MG CAPSULE PO (21:31)
[2021-01-25 21:55] VITALS: BP 141/54; PULSE 66; RESP 16; TEMP 36.7; O2SAT 96
[2021-01-26 04:52] LABS: Basophils Absolute Auto 0.1 K/mm3 (0.0-0.1); Basophils Percent Auto 1.6 % (0.2-1.2); Eosinophils Absolute Auto 0.2 K/mm3 (0-0.3); Eosinophils Percent Auto 2.9 % (0-4.4); Hematocrit 32.2 % (42.0-52.0); Immature Granulocyte Absolute 0.02 K/mm3 (0.00-0.031); Immature Granulocyte Percent A 0.3 % (0-0.5); Lymphocytes Absolute Auto 1.31 K/mm3 (0.9-3.2); Mean Corpuscular HGB Conc 34.2 g/dl (32-36); Mean Corpuscular Hemoglobin 31.5 pg (26-34); Mean Corpuscular Volume 92.3 fl (80-100); Mean Platelet Volume 10.1 fl (7.4-10.4); Monocytes Absolute Auto 0.8 K/mm3 (0.1-0.6); Monocytes Percent Auto 11.9 % (2.6-8.5); Neutrophils Absolute Auto 4.4 K/mm3 (1.3-6.7); Neutrophils Percent Auto 64.3 % (45.5-73.1); Platelet Count Result 306 k/mm3 (150-375); Red Blood Count 3.49 M/mm3 (4.6-6.20); Red Cell Distribution Width 14.9 % (11.5-14.5); White Blood Count 6.9 K/mm3 (4.5-10.0)
[2021-01-26 05:09] LABS: Alanine Aminotransferase 19 U/L (4-50); Albumin Level 3.4 g/dL (3.5-5.1); Alkaline Phosphatase 60 U/L (38-126); Anion Gap 4 mmol/L (8-16); Aspartate Amino Transferase 24 U/L (17-59); Bilirubin,Total 0.6 mg/dL (0.2-1.3); Blood Urea Nitrogen 16 mg/dL (9-20); Calcium 10.5 mg/dL (8.4-10.2); Carbon Dioxide 29 mmol/L (22-30); Chloride 103 mmol/L (98-107); Estimated CRCL calculation 66 ml/min; Estimated Glomerular Filt Rate > 60; Glucose 120 mg/dL (75-110); Sodium 136 mmol/L (137-145)
[2021-01-26 06:00] VITALS: BP 126/54; PULSE 61; RESP 16; TEMP 36.7; O2SAT 97
[2021-01-26] MEDS: HEPARIN SODIUM 5,000 UNITS/ML VIAL 5000 UNITS SUB-Q ×3 (06:00→22:10)
[2021-01-26 06:19] LABS: Glucose Point of Care 128 mg/dl (65-105)
[2021-01-26] MEDS: LIDOCAINE 5% PATCH 2 PATCH TRANSDERM (08:31)
[2021-01-26] MEDS: FUROSEMIDE 20 MG TABLET PO (08:32)
[2021-01-26] MEDS: TAMSULOSIN HCL 0.4 MG CAPSULE PO ×2 (08:32→22:05)
[2021-01-26] MEDS: NICOTINE (*PBKC) 21 MG PATCH 1 PATCH TRANSDERM (08:32)
[2021-01-26] MEDS: glipiZIDE XL 2.5 MG TAB.ER.24 PO (08:33)
[2021-01-26] MEDS: POTASSIUM CHLORIDE 20 MEQ TABLET.ER PO (08:33)
[2021-01-26] MEDS: GABAPENTIN 100 MG CAPSULE 200 MG PO ×3 (08:33→17:19)
[2021-01-26] MEDS: ASPIRIN 81 MG ENTERIC TABLET PO (08:33)
[2021-01-26] MEDS: DOCUSATE SODIUM 100 MG CAPSULE PO ×2 (08:33→17:20)
[2021-01-26] MEDS: BETAMETHASONE/CLOTRIMAZOLE CR 15 GM TUBE 1 APPLIC TOPICAL (08:33)
[2021-01-26] MEDS: SILVERGEL (ELTA) 45 ML 1 APPLIC TOPICAL (08:34)
--- NOTE | 2021-01-26 09:21 | PM.IMPN ---
Progress Note: A&P Assessment and Plan (1) Hyponatremia: Code(s): E87.1 - Hypo-osmolality and hyponatremia Status: Acute Assessment and Plan: Most likely related to dehydration DC IV fluid DC fluid restriction Follow-up BMP twice weekly while inpatient Resolved DC fluid restriction discussed with the nurse Decrease Lasix to 20 mg p.o. daily . (2) Above knee amputation of left lower extremity: Code(s): S78.112A - Complete traumatic amputation at level between left hip and knee, initial encounter Status: Acute Assessment and Plan: Continue physical therapy. (3) Phantom pain after amputation of lower extremity: Code(s): G54.6 - Phantom limb syndrome with pain Status: Acute Assessment and Plan: Pain control (4) Chronic kidney disease, stage 3: Code(s): N18.30 - Chronic kidney disease, stage 3 unspecified Status: Acute Assessment and Plan: Repeat BMP in a.m. stable avoid nephrotoxic medication (5) COPD (chronic obstructive pulmonary disease): Code(s): J44.9 - Chronic obstructive pulmonary disease, unspecified Status: Acute Assessment and Plan: States stable on medication. (6) Hypertension: Code(s): I10 - Essential (primary) hypertension Status: Acute Assessment and Plan: Stable on medication. (7) Hyperlipidemia: Code(s): E78.5 - Hyperlipidemia, unspecified Status: Acute Assessment and Plan: Stable on medication. (8) Peripheral vascular disease: Code(s): I73.9 - Peripheral vascular disease, unspecified Status: Acute Assessment and Plan: Stable on medication. Subjective Date/time seen: 01/26/21 09:21 Interval history: Patient seen and examined Patient feels better today dizziness has resolved DC IV fluid Follow-up BMP twice weekly while inpatient reviewed CBC Improved Patient denies fever headache chest pain shortness of breath I am seeing the patient for dehydration Exam Narrative: Exam Narrative: Alert looks dehydrated Chest no wheeze crackles Abdomen nontender nondistended CVS S1 + S2 Lower extremity edema . Objective Data Vital Signs Vital Signs: Vital Signs - 24 hr 01/25/21 12:20 01/25/21 14:00 01/25/21 21:31 Temperature 96.2 F L Pulse Rate 62 64 66 Respiratory Rate 14 Blood Pressure 119/52 L Pulse Oximetry 98 01/25/21 21:55 01/26/21 06:00 Temperature 98.1 F 98.1 F Pulse Rate 66 61 Respiratory Rate 16 16 Blood Pressure 141/54 H 126/54 L Pulse Oximetry 96 97 Intake/Output Intake/Output: Intake & Output 01/23/21 01/24/21 01/25/21 01/26/21 23:59 23:59 23:59 23:59 Intake Total 720 1700 1800 240 Output Total 1200 700 Balance 158 338 6734 240 Meds/Results Medications: Active Medications Generic Name Dose Route Start Last Admin Trade Name Freq PRN Reason Stop Dose Admin Acetaminophen 650 mg 01/18/21 14:13 01/24/21 23:53 Acetaminophen 325 Mg Tablet PO 650 mg Q6H PRN Administration h/a, mild pain, fever Hydrocodone Bitart/Acetaminophen 1 tab 01/22/21 13:56 01/25/21 04:37 Hydrocodone/Acetaminophen (*Crx) 5-325 Mg Tablet PO 1 tab Q6H PRN Administration Pain Rated 4-6 Aspirin 81 mg 01/19/21 09:00 01/26/21 08:33 Aspirin 81 Mg Enteric Tablet PO 81 mg DAILY JESS Administration Carvedilol 3.125 mg 01/20/21 12:00 01/25/21 21:31 Carvedilol 3.125 Mg Tablet PO 3.125 mg 1200,2100 JESS Administration Clotrimazole 1 applic 01/19/21 09:00 01/26/21 08:33 Betamethasone/Clotrimazole Cr 15 Gm Tube TOPICAL 1 applic Q12HR JESS Administration Dextrose 12.5 gm 01/18/21 12:30 Dextrose 50% 25 Gm/50 Ml Syringe IV PUSH PRN PRN Hypoglycemia Protocol Docusate Sodium 100 mg 01/18/21 17:00 01/26/21 08:33 Docusate Sodium 100 Mg Capsule PO 100 mg BID JESS Administration Furosemide 20 mg 01/24/21 09:00 01/26/21 08:32 Furosemide 20 Mg T
[2021-01-26 11:26] LABS: Glucose Point of Care 188 mg/dl (65-105)
[2021-01-26 11:53] VITALS: PULSE 61
[2021-01-26] MEDS: carvediloL 3.125 MG TABLET PO ×2 (11:53→22:06)
[2021-01-26 14:00] VITALS: BP 105/50; PULSE 64; RESP 18; TEMP 36.7; O2SAT 99
[2021-01-26 17:02] LABS: Glucose Point of Care 203 mg/dl (65-105)
[2021-01-26] MEDS: PANTOPRAZOLE 40 MG TABLET PO (17:20)
[2021-01-26 20:30] VITALS: PULSE 64; RESP 16; O2SAT 100
[2021-01-26 21:49] VITALS: BP 150/45; PULSE 61; RESP 16; TEMP 36.7; O2SAT 100
[2021-01-26] MEDS: ROSUVASTATIN 10 MG TABLET 20 MG PO (22:05)
[2021-01-26 22:06] VITALS: PULSE 64
[2021-01-26] MEDS: GABAPENTIN 400 MG CAPSULE PO (22:08)
[2021-01-26 23:16] LABS: Glucose Point of Care 158 mg/dl (65-105)
[2021-01-27] MEDS: BETAMETHASONE/CLOTRIMAZOLE CR 15 GM TUBE 1 APPLIC TOPICAL ×3 (01:08→20:42)
[2021-01-27 05:56] VITALS: BP 156/54; PULSE 60; RESP 16; TEMP 36.9; O2SAT 98
[2021-01-27] MEDS: HEPARIN SODIUM 5,000 UNITS/ML VIAL 5000 UNITS SUB-Q ×3 (06:02→20:40)
[2021-01-27 06:48] LABS: Glucose Point of Care 120 mg/dl (65-105)
[2021-01-27] MEDS: POTASSIUM CHLORIDE 20 MEQ TABLET.ER PO (08:21)
[2021-01-27] MEDS: glipiZIDE XL 2.5 MG TAB.ER.24 PO (08:21)
[2021-01-27] MEDS: GABAPENTIN 100 MG CAPSULE 200 MG PO ×3 (08:21→17:21)
[2021-01-27] MEDS: ASPIRIN 81 MG ENTERIC TABLET PO (08:21)
[2021-01-27] MEDS: FUROSEMIDE 20 MG TABLET PO (08:21)
[2021-01-27] MEDS: TAMSULOSIN HCL 0.4 MG CAPSULE PO ×2 (08:22→20:39)
[2021-01-27] MEDS: NICOTINE (*PBKC) 21 MG PATCH 1 PATCH TRANSDERM (08:22)
[2021-01-27] MEDS: LIDOCAINE 5% PATCH 2 PATCH TRANSDERM (08:22)
[2021-01-27] MEDS: DOCUSATE SODIUM 100 MG CAPSULE PO ×2 (08:23→17:21)
[2021-01-27] MEDS: SILVERGEL (ELTA) 45 ML 1 APPLIC TOPICAL (08:23)
--- NOTE | 2021-01-27 10:28 | PCNFU ---
Nutrition Follow-Up Complete: Nutrition Diagnosis: Inadequate oral intake related to decreased appetite as evidenced by intakes less than 50% of meals. Nutrition Goal: Patient to consume 75% of meals/supplements or greater. Goal has been met, patient is consuming 100% of meals. Nutrition recommendation: Continue with Heart Healthy, carbohydrate controlled diet and the Glucerna supplement shake, per patient's request with every meal. Last recorded weight is 58 kg. Bowel Motility: Last documented on 01/26 Labs Reviewed: Hgb (11.0), Hct (32.2), Alb (3.4), Na (136), Glu (120) Meds Noted: Sarah, Protonix, Colace, Lasix, Coreg, Miralax, Potassium Chloride Additional Notes: Patient reported meals are going great and is enjoying the Glucerna supplement shake TID. Patient was in good spirits and had no concerns. Follow up in 7 days.
--- NOTE | 2021-01-27 11:26 | PCNSR ---
On 01/27/21, the student, Nancy Duenas, provided care and completed [facility] documentation on this patient. I have reviewed the student's documentation and agree with the findings.
--- NOTE | 2021-01-27 11:56 | WPDNEURORHBP ---
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 Patient was admitted on 01/05/2021 to [facility] ED with complaints of dizziness and generalized weakness. Patient was found to have an urinary tract infection and was placed on IV antibiotics. Patient was cleared for surgery and underwent a left AKA on 01/12/[address] Jung . [facility] course: UTI treated with Rocephin 01/12/21 L AKA Cardiology was consulted to adjust meds. Patient has a history of pacemaker due to Afib/flutter and recently had an ablation. Patient's Eliquis has been discontinued with successful NSR after ablation. Post op includes hypotension, urinary retention with Segal being discontinued on 01/13, postoperative pain, hyponatremia, hyperglycemia with A1c 6. leukocytosis, and acute blood loss anemia. Postop pain was controlled with IV Dilaudid [employer]ATOR which was removed on 01/16 and currently is on [place]. patient's home medicine of glipizide was discontinued upon transfer to rehab. Patient will remain on heparin 5000 units q.8 hours for prophylaxis of DVT. Patient will remain on aspirin and beta-silas. Therapy was initiated at the acute care facility and the patient transferred to us from [facility] on 01/18/21 01/20/21 Patient alert and talkative this afternoon. Patient with ongoing complaints of pain. He states that his pain was not controlled at home. Will d/c SSI and resume glipizide at 2.5 mg XL daily. Appreciate hospitalist consult 01/21/21 Patient in good spirits. patient slept well. Incision shows good approximation scant drainage. Right foot wounds are improving. 01/22/21 Patient complaining of indigestion. Patient is on Protonix. Patient is pleased with gabapentin and pain mgmt and is sleeping at night. 01/25/21 patient complaining of phantom pain at night with inability to sleep. Will increase Neurontin from 300 mg to 400 mg at bedtime. Continue Neurontin during the daytime at 200 mg t.i.d. patient is pleased with his overall progress with therapy. Patient pleased with pain mgmt. Patient looking forward to going home. Review of Systems Review of Systems: All systems reviewed & are unremarkable except as noted in HPI and below Functional Status Ambulation Ability Ability to Ambulate 10 Feet: Standby Assistance Ambulation Assistive Devices: Walker, Wheeled Transfers Ability Ability to Transfer In/Out of Chair: Standby Assistance Exam Narrative: Exam Narrative: Head normocephalic, EOMI, kyphotic posture. Heart rate and rhythm is regular. Lung sounds are distant. Abdomen is soft nontender. Endurance is better. patient is approaching independence with transfers. Right foot wounds are decreasing in size and shows no signs of infection. Dressing is dry and clean to stump. Objective Data Vital Signs Vital Signs: Vital Signs - 24 hr 01/26/21 14:00 01/26/21 20:30 01/26/21 21:49 Temperature 36.7 C 36.7 C Pulse Rate 64 64 61 Respiratory Rate 18 16 16 Blood Pressure 105/50 L 150/45 H Pulse Oximetry 99 100 100 01/26/21 22:06 01/27/21 05:56 Temperature 36.9 C Pulse Rate 64 60 Respiratory Rate 16 Blood Pressure 156/54 H Pulse Oximetry 98 Intake/Output Intake/Output: Intake & Output 01/24/21 01/25/21 01/26/21 01/27/21 23:59 23:59 23:59 23:59 Intake Total 1700 1800 960 360 O
[2021-01-27 12:04] LABS: Glucose Point of Care 151 mg/dl (65-105)
[2021-01-27 12:16] VITALS: PULSE 60
[2021-01-27] MEDS: carvediloL 3.125 MG TABLET PO ×2 (12:16→20:40)
[2021-01-27 14:00] VITALS: BP 122/52; PULSE 70; RESP 16; TEMP 36.6; O2SAT 100
--- NOTE | 2021-01-27 16:43 | PM.IMPN ---
Progress Note: A&P Assessment and Plan (1) Hyponatremia: Code(s): E87.1 - Hypo-osmolality and hyponatremia Status: Acute Assessment and Plan: Management as below: Follow-up BMP twice weekly while inpatient Resolved DC fluid restriction discussed with the nurse Lasix to 20 mg p.o. daily Sodium is 136 (2) Above knee amputation of left lower extremity: Code(s): S78.112A - Complete traumatic amputation at level between left hip and knee, initial encounter Status: Acute Assessment and Plan: Continue physical therapy. (3) Phantom pain after amputation of lower extremity: Code(s): G54.6 - Phantom limb syndrome with pain Status: Acute Assessment and Plan: Pain control (4) Chronic kidney disease, stage 3: Code(s): N18.30 - Chronic kidney disease, stage 3 unspecified Status: Acute Assessment and Plan: Repeat BMP in a.m. stable avoid nephrotoxic medication (5) COPD (chronic obstructive pulmonary disease): Code(s): J44.9 - Chronic obstructive pulmonary disease, unspecified Status: Acute Assessment and Plan: States stable on medication. (6) Hypertension: Code(s): I10 - Essential (primary) hypertension Status: Acute Assessment and Plan: Stable on medication. (7) Hyperlipidemia: Code(s): E78.5 - Hyperlipidemia, unspecified Status: Acute Assessment and Plan: Stable on medication. (8) Peripheral vascular disease: Code(s): I73.9 - Peripheral vascular disease, unspecified Status: Acute Assessment and Plan: Stable on medication. 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 Patient was admitted on 01/05/[address] [facility] ED with complaints of dizziness and generalized weakness. Patient was found to have an urinary tract infection and was placed on IV antibiotics. Pt is recovering advised to do better with his DM control. Pt is in rehab for status post left above knee amputation. Review of Systems Review of Systems: All systems reviewed & are unremarkable except as noted in HPI and below Exam Narrative: Exam Narrative: Alert looks dehydrated Chest no wheeze crackles Abdomen nontender nondistended CVS S1 + S2 Lower extremity edema. Sp amputee Objective Data Vital Signs Vital Signs: Vital Signs - 24 hr 01/26/21 20:30 01/26/21 21:49 01/26/21 22:06 Temperature 36.7 C Pulse Rate 64 61 64 Respiratory Rate 16 16 Blood Pressure 150/45 H Pulse Oximetry 100 100 01/27/21 05:56 01/27/21 12:16 01/27/21 14:00 Temperature 36.9 C 36.6 C Pulse Rate 60 60 70 Respiratory Rate 16 16 Blood Pressure 156/54 H 122/52 L Pulse Oximetry 98 100 Intake/Output Intake/Output: Intake & Output 01/24/21 01/25/21 01/26/21 01/27/21 23:59 23:59 23:59 23:59 Intake Total 1700 1800 960 720 Output Total 1200 700 Balance 500 1100 960 720 Meds/Results Medications: Active Medications Generic Name Dose Route Start Last Admin Trade Name Freq PRN Reason Stop Dose Admin Acetaminophen 650 mg 01/18/21 14:13 01/24/21 23:53 Acetaminophen 325 Mg Tablet PO 650 mg Q6H PRN Administration h/a, mild pain, fever Hydrocodone Bitart/Acetaminophen 1 tab 01/22/21 13:56 01/25/21 04:37 Hydrocodone/Acetaminophen (*Crx) 5-325 Mg Tablet PO 1 tab Q6H PRN Administration Pain Rated 4-6 Aspirin 81 mg 01/19/21 09:00 01/27/21 08:21 Aspirin 81
[2021-01-27 16:55] LABS: Glucose Point of Care 185 mg/dl (65-105)
[2021-01-27] MEDS: PANTOPRAZOLE 40 MG TABLET PO (17:21)
[2021-01-27 20:30] VITALS: PULSE 60; RESP 16; O2SAT 99
[2021-01-27] MEDS: GABAPENTIN 400 MG CAPSULE PO (20:39)
[2021-01-27] MEDS: ROSUVASTATIN 10 MG TABLET 20 MG PO (20:39)
[2021-01-27 20:40] VITALS: PULSE 64
[2021-01-27] MEDS: polyethylene glycoL 3350 17 GM POWD.PACK PO ×2 (20:51→20:53)
[2021-01-27] MEDS: MELATONIN 3 MG TABLET PO ×2 (20:51→20:52)
[2021-01-27 21:48] VITALS: BP 142/47; PULSE 60; RESP 16; TEMP 36.4; O2SAT 99
[2021-01-27 22:11] LABS: Glucose Point of Care 269 mg/dl (65-105)
[2021-01-28] MEDS: HEPARIN SODIUM 5,000 UNITS/ML VIAL 5000 UNITS SUB-Q ×3 (05:57→21:22)
[2021-01-28 06:00] VITALS: BP 111/47; PULSE 60; RESP 18; TEMP 36.6; O2SAT 97
[2021-01-28 06:42] LABS: Glucose Point of Care 87 mg/dl (65-105)
[2021-01-28 08:00] VITALS: PULSE 60; RESP 18; O2SAT 97
[2021-01-28] MEDS: ASPIRIN 81 MG ENTERIC TABLET PO (08:54)
[2021-01-28] MEDS: TAMSULOSIN HCL 0.4 MG CAPSULE PO ×2 (08:54→20:54)
[2021-01-28] MEDS: GABAPENTIN 100 MG CAPSULE 200 MG PO ×3 (08:54→16:54)
[2021-01-28] MEDS: FUROSEMIDE 20 MG TABLET PO (08:54)
[2021-01-28] MEDS: POTASSIUM CHLORIDE 20 MEQ TABLET.ER PO (08:55)
[2021-01-28] MEDS: glipiZIDE XL 5 MG TABCR PO (08:55)
[2021-01-28] MEDS: DOCUSATE SODIUM 100 MG CAPSULE PO ×2 (08:55→16:54)
[2021-01-28] MEDS: BETAMETHASONE/CLOTRIMAZOLE CR 15 GM TUBE 1 APPLIC TOPICAL ×2 (08:55→20:55)
[2021-01-28] MEDS: SILVERGEL (ELTA) 45 ML 1 APPLIC TOPICAL (08:56)
[2021-01-28] MEDS: LIDOCAINE 5% PATCH 2 PATCH TRANSDERM (08:56)
[2021-01-28] MEDS: NICOTINE (*PBKC) 21 MG PATCH 1 PATCH TRANSDERM (08:56)
[2021-01-28] MEDS: polyethylene glycoL 3350 17 GM POWD.PACK PO (10:11)
--- NOTE | 2021-01-28 11:30 | WPDNEURORHBP ---
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 Patient was admitted on 01/05/2021 to [facility] ED with complaints of dizziness and generalized weakness. Patient was found to have an urinary tract infection and was placed on IV antibiotics. Patient was cleared for surgery and underwent a left AKA on 01/12/[address] Jung . [facility] course: UTI treated with Rocephin 01/12/21 L AKA Cardiology was consulted to adjust meds. Patient has a history of pacemaker due to Afib/flutter and recently had an ablation. Patient's Eliquis has been discontinued with successful NSR after ablation. Post op includes hypotension, urinary retention with Segal being discontinued on 01/13, postoperative pain, hyponatremia, hyperglycemia with A1c 6. leukocytosis, and acute blood loss anemia. Postop pain was controlled with IV Dilaudid CAR GREASER which was removed on 01/16 and currently is on [place]. patient's home medicine of glipizide was discontinued upon transfer to rehab. Patient will remain on heparin 5000 units q.8 hours for prophylaxis of DVT. Patient will remain on aspirin and beta-silas. Therapy was initiated at the acute care facility and the patient transferred to us from [facility] on 01/18/21 01/20/21 Patient alert and talkative this afternoon. Patient with ongoing complaints of pain. He states that his pain was not controlled at home. Will d/c SSI and resume glipizide at 2.5 mg XL daily. Appreciate hospitalist consult 01/21/21 Patient in good spirits. patient slept well. Incision shows good approximation scant drainage. Right foot wounds are improving. 01/22/21 Patient complaining of indigestion. Patient is on Protonix. Patient is pleased with gabapentin and pain mgmt and is sleeping at night. 01/25/21 patient complaining of phantom pain at night with inability to sleep. Will increase Neurontin from 300 mg to 400 mg at bedtime. Continue Neurontin during the daytime at 200 mg t.i.d. patient is pleased with his overall progress with therapy. Patient without complaints. Tentative discharge tomorrow Review of Systems Review of Systems: All systems reviewed & are unremarkable except as noted in HPI and below Constitutional: Constitutional: Reports weakness Functional Status Ambulation Ability Ability to Ambulate 10 Feet: Independent Ambulation Assistive Devices: Walker, Wheeled Transfers Ability Ability to Transfer In/Out of Chair: Standby Assistance Exam Narrative: Exam Narrative: Head normocephalic, EOMI, kyphotic posture. Heart rate and rhythm is regular. Lung sounds are distant. Abdomen is soft nontender. Endurance is better. patient is independent with transfers. gait is independent short distances. Endurance has improved Objective Data Vital Signs Vital Signs: Vital Signs - 24 hr 01/27/21 12:16 01/27/21 14:00 01/27/21 20:30 Temperature 36.6 C Pulse Rate 60 70 60 Respiratory Rate 16 16 Blood Pressure 122/52 L Pulse Oximetry 100 99 01/27/21 20:40 01/27/21 21:48 01/28/21 06:00 Temperature 36.4 C L 36.6 C Pulse Rate 64 60 60 Respiratory Rate 16 18 Blood Pressure 142/47 H 111/47 L Pulse Oximetry 99 97 Intake/Output Intake/Output: Intake & Output 01/25/21 01/26/21 01/27/21 01/28/21 23:59 23:59 23:59 23:59 Intake Total 1800 96
[2021-01-28 11:38] LABS: Glucose Point of Care 132 mg/dl (65-105)
[2021-01-28 12:27] VITALS: PULSE 60
[2021-01-28] MEDS: carvediloL 3.125 MG TABLET PO ×2 (12:27→20:54)
[2021-01-28 14:00] VITALS: BP 118/52; PULSE 65; RESP 18; TEMP 36.2; O2SAT 96
[2021-01-28 16:37] LABS: Glucose Point of Care 106 mg/dl (65-105)
[2021-01-28] MEDS: PANTOPRAZOLE 40 MG TABLET PO (16:54)
--- NOTE | 2021-01-28 17:13 | PM.IMPN ---
Progress Note: A&P Assessment and Plan (1) Hyponatremia: Code(s): E87.1 - Hypo-osmolality and hyponatremia Status: Acute Assessment and Plan: Management as below: Follow-up BMP twice weekly while inpatient Resolved DC fluid restriction discussed with the nurse Lasix to 20 mg p.o. daily Sodium is 136 (2) Above knee amputation of left lower extremity: Code(s): S78.112A - Complete traumatic amputation at level between left hip and knee, initial encounter Status: Acute Assessment and Plan: Continue physical therapy. (3) Phantom pain after amputation of lower extremity: Code(s): G54.6 - Phantom limb syndrome with pain Status: Acute Assessment and Plan: Pain control (4) Chronic kidney disease, stage 3: Code(s): N18.30 - Chronic kidney disease, stage 3 unspecified Status: Acute Assessment and Plan: Repeat BMP in a.m. stable avoid nephrotoxic medication (5) COPD (chronic obstructive pulmonary disease): Code(s): J44.9 - Chronic obstructive pulmonary disease, unspecified Status: Acute Assessment and Plan: States stable on medication. (6) Hypertension: Code(s): I10 - Essential (primary) hypertension Status: Acute Assessment and Plan: Stable on medication. (7) Hyperlipidemia: Code(s): E78.5 - Hyperlipidemia, unspecified Status: Acute Assessment and Plan: Stable on medication. (8) Peripheral vascular disease: Code(s): I73.9 - Peripheral vascular disease, unspecified Status: Acute Assessment and Plan: Stable on medication. (9) Type 2 diabetes mellitus: Code(s): E11.9 - Type 2 diabetes mellitus without complications Status: Acute Assessment and Plan: Advised better control of DM and compliance to medications Subjective Date/time seen: 01/28/21 17:13 Interval history: INTERVAL HISTORY : 75-year-old male with past medical history of hypertension, CAD, CABG x 6, DM on glipizide at home, hyperlipidemia, osteoarthritis, cervical disc disease, chronic back pain, osteoporosis, peripheral neuropathy, restless leg syndrome, depression, BPH, irritable bowel syndrome, GERD, COPD, smoker, questionable esophageal stricture with known severe peripheral vascular disease of the left lower extremity with 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 Sp amputation. Patient was admitted on 01/05/2021 to [facility] ED with complaints of dizziness and generalized weakness. Patient was found to have an urinary tract infection and was placed on IV antibiotics. Stable for discharge tomorrow.[facility] now, I will sign off on this case. Review of Systems Review of Systems: All systems reviewed & are unremarkable except as noted in HPI and below Exam Narrative: Exam Narrative: Alert looks dehydrated Chest no wheeze crackles Abdomen nontender nondistended CVS S1 + S2 Lower extremity edema. Sp amputee Objective Data Vital Signs Vital Signs: Vital Signs - 24 hr 01/27/21 20:30 01/27/21 20:40 01/27/21 21:48 Temperature 36.4 C L Pulse Rate 60 64 60 Respiratory Rate 16 16 Blood Pressure 142/47 H Pulse Oximetry 99 99 01/28/21 06:00 01/28/21 08:00 01/28/21 12:27 Temperature 36.6 C Pulse Rate 60 60 60 Respiratory Rate 18 18 Blood Pressure 111/47 L Pulse Oximetry 97 97 01/28/21 14:00 Temperature 36.2 C L Pulse Rate 65 Respiratory Rate 18 Blood Pressure 118/52 L Pulse Oximetry 96 Intake/Output Intake/Output: Intake & Output 01/25/21 01/26/21 01/27/21 01/28/21 23:59 23:59 23:59 23:59 Intake Total 4743 684 6054 480 Output Total 700 Balance 3911 967 3369 480 Meds/Results Medications: Active Medications Generic Name Dose Route Start Last Admin Trade Name Freq PRN Reason Stop Dose Admin Acetaminophen 650 mg 01/18/21 14:13 01/24/21 23:53 Acetaminophen 325 Mg Tablet PO 650 mg Q6H PRN
--- NOTE | 2021-01-28 18:30 | PC.NURSE ---
dressing changes to coccyx silvergel and mepilex applied. lotrisone cream applied to foot. coverlet dressings changed to stump. ras intact, no drainage noted.
[2021-01-28 19:46] LABS: Glucose Point of Care 182 mg/dl (65-105)
[2021-01-28 20:54] VITALS: BP 142/45; PULSE 67; RESP 16; TEMP 36.6; O2SAT 100
[2021-01-28] MEDS: ROSUVASTATIN 10 MG TABLET 20 MG PO (20:54)
[2021-01-28] MEDS: GABAPENTIN 400 MG CAPSULE PO (20:54)
[2021-01-28] MEDS: MELATONIN 3 MG TABLET PO (20:57)
[2021-01-29] MEDS: ACETAMINOPHEN 325 MG TABLET 650 MG PO (04:21)
[2021-01-29] MEDS: HEPARIN SODIUM 5,000 UNITS/ML VIAL 5000 UNITS SUB-Q (05:52)
[2021-01-29 06:00] VITALS: BP 142/48; PULSE 61; RESP 16; TEMP 36.4; O2SAT 97
[2021-01-29 06:22] LABS: Glucose Point of Care 140 mg/dl (65-105)
[2021-01-29] MEDS: POTASSIUM CHLORIDE 20 MEQ TABLET.ER PO (08:43)
[2021-01-29] MEDS: LIDOCAINE 5% PATCH 2 PATCH TRANSDERM (08:43)
[2021-01-29] MEDS: ASPIRIN 81 MG ENTERIC TABLET PO (08:43)
[2021-01-29] MEDS: BETAMETHASONE/CLOTRIMAZOLE CR 15 GM TUBE 1 APPLIC TOPICAL (08:43)
[2021-01-29] MEDS: DOCUSATE SODIUM 100 MG CAPSULE PO (08:43)
[2021-01-29] MEDS: glipiZIDE XL 5 MG TABCR PO (08:43)
[2021-01-29] MEDS: SILVERGEL (ELTA) 45 ML 1 APPLIC TOPICAL (08:44)
[2021-01-29] MEDS: FUROSEMIDE 20 MG TABLET PO (08:44)
[2021-01-29] MEDS: GABAPENTIN 100 MG CAPSULE 200 MG PO (08:44)
[2021-01-29] MEDS: NICOTINE (*PBKC) 21 MG PATCH 1 PATCH TRANSDERM (08:44)
[2021-01-29] MEDS: TAMSULOSIN HCL 0.4 MG CAPSULE PO (08:45)
--- NOTE | 2021-01-29 10:03 | PM.DS ---
DS: Admitting Diagnosis Admitting Diagnosis Admitting Diagnosis: left above knee amputation DS: Discharge Diagnosis Discharge Diagnosis (1) Phantom pain after amputation of lower extremity: Code(s): G54.6 - Phantom limb syndrome with pain Status: Acute Assessment and Plan: Neurontin 300mg TID and 400mg q hs (2) Hyponatremia: Code(s): E87.1 - Hypo-osmolality and hyponatremia Status: Acute Assessment and Plan: discontinue low-sodium diet, liberalize sodium in his diet. Patient receiving NS IVF 01/22/21 IVF stopped (3) Above knee amputation of left lower extremity: Code(s): S78.112A - Complete traumatic amputation at level between left hip and knee, initial encounter Status: Acute Assessment and Plan: continue monitoring incision, PT OT (4) Type 2 diabetes mellitus: Code(s): E11.9 - Type 2 diabetes mellitus without complications Status: Acute Assessment and Plan: patient is back on 5 mg daily of glipizide. Blood sugars under good control (5) Chronic wound of extremity: Status: Acute Assessment and Plan: chronic wounds are noted to the right foot, wound care nurse following. 01/21/21 and 01/27/21 Wounds look better. Continue home health care nursing (6) Chronic kidney disease, stage 3: Code(s): N18.30 - Chronic kidney disease, stage 3 unspecified Status: Acute Assessment and Plan: monitor (7) COPD (chronic obstructive pulmonary disease): Code(s): J44.9 - Chronic obstructive pulmonary disease, unspecified Status: Acute Assessment and Plan: due to tobacco use. Patient is to go home on Nicoderm patches (8) Hypertension: Code(s): I10 - Essential (primary) hypertension Status: Acute Assessment and Plan: Coreg (9) GERD (gastroesophageal reflux disease): Code(s): K21.9 - Gastro-esophageal reflux disease without esophagitis Status: Acute Assessment and Plan: patient with suspected esophageal stricture. On protonix during hospital stay. (10) Hyperlipidemia: Code(s): E78.5 - Hyperlipidemia, unspecified Status: Acute Assessment and Plan: crestor (11) Peripheral vascular disease: Code(s): I73.9 - Peripheral vascular disease, unspecified Status: Acute Assessment and Plan: aspirin (12) Coronary artery disease: Code(s): I25.10 - Atherosclerotic heart disease of [place] coronary artery without angina pectoris Status: Acute Assessment and Plan: aspirin, status post LA, history of CABG (13) Tobacco abuse: Code(s): Z72.0 - Tobacco use Status: Acute Assessment and Plan: nicotine patch (14) DVT prophylaxis: Code(s): Z29.9 - Encounter for prophylactic measures, unspecified Status: Acute Assessment and Plan: heparin was given during hospital stay. (15) Cervical disc disease: Code(s): M50.90 - Cervical disc disorder, unspecified, unspecified cervical region Status: Acute Assessment and Plan: add Lidoderm patch (16) S/P ablation of atrial fibrillation: Code(s): Z98.890 - Other specified postprocedural states; Z86.79 - Personal history of other diseases of the circulatory system Status: Acute Assessment and Plan: Eliquis has been stopped per Cardiology (17) Restless leg syndrome: Code(s): G25.81 - Restless legs syndrome Status: Acute Assessment and Plan: monitor (18) Peripheral neuropathy: Code(s): G62.9 - Polyneuropathy, unspecified Status: Acute Assessment and Plan: Neurontin 300mg TID with 4000mg qhs (19) Osteoporosis: Code(s): M81.0 - Age-related osteoporosis without current pathological fracture Status: Acute Assessment and Plan: monitor (20) Lumbar disc disease: Code(s): M51.9 - Unspecified thoracic, thoracolumbar and lumbosacral intervert
[2021-01-29 12:13] LABS: Glucose Point of Care 155 mg/dl (65-105)
[2021-01-29 12:24] VITALS: PULSE 61
[2021-01-29] MEDS: GABAPENTIN 300 MG CAPSULE PO (12:24)
[2021-01-29] MEDS: carvediloL 3.125 MG TABLET PO (12:24)
--- NOTE | 2021-01-29 14:43 | PC.NURSE ---
[facility] Home Health called asking for more detailed wound care. Entered and refaxed to [facility].
== END 2021-01-29 13:10 | disposition home health service (06) | DRG 560 ==
PROVIDERS: Internal Medicine; Admitting Provider Physical Medicine & Rehabilitation; PCP Family Medicine; Visit Provider Physical Medicine & Rehabilitation
DX: Z47.81 Encounter for orthopedic aftercare following surgical amputation (principal); I74.09 Other arterial embolism and thrombosis of abdominal aorta; I13.0 Hypertensive heart and chronic kidney disease with heart failure and stage 1 through stage 4 chronic kidney disease, or unspecified chronic kidney disease; I50.20 Unspecified systolic (congestive) heart failure; Z89.612 Acquired absence of left leg above knee; E11.51 Type 2 diabetes mellitus with diabetic peripheral angiopathy without gangrene; E11.42 Type 2 diabetes mellitus with diabetic polyneuropathy; E11.65 Type 2 diabetes mellitus with hyperglycemia; E11.22 Type 2 diabetes mellitus with diabetic chronic kidney disease; E78.5 Hyperlipidemia, unspecified; F17.210 Nicotine dependence, cigarettes, uncomplicated; G54.6 Phantom limb syndrome with pain; G25.81 Restless legs syndrome; I25.10 Atherosclerotic heart disease of native coronary artery without angina pectoris; J44.9 Chronic obstructive pulmonary disease, unspecified; K21.9 Gastro-esophageal reflux disease without esophagitis; K58.9 Irritable bowel syndrome, unspecified; L97.519 Non-pressure chronic ulcer of other part of right foot with unspecified severity; M54.5 Low back pain; M19.90 Unspecified osteoarthritis, unspecified site; M81.0 Age-related osteoporosis without current pathological fracture; N40.1 Benign prostatic hyperplasia with lower urinary tract symptoms; N18.30 Chronic kidney disease, stage 3 unspecified; R33.8 Other retention of urine; Z95.0 Presence of cardiac pacemaker; Z95.1 Presence of aortocoronary bypass graft; Z79.899 Other long term (current) drug therapy
CPT/HCPCS: 36415; 80048; 80053; 82948; 83036; 85025; 85049; 97110; 97116; 97162; 97165; 97530; 97535; 97542; A9270; J1644; J1815; J7030

== ENCOUNTER 2022-04-23 14:52 | Outpatient (CLI) | payer MEDICARE, SELFPAY ==
--- NOTE | ~2022-04-23 | CT_ITS ---
EXAMINATION: CT abdomen pelvis w con DATE: 04/23/2022 15:17 INDICATION: Lower abdominal pain. Recurrent UTI. TECHNIQUE: Computed tomography (CT) of the abdomen and pelvis was performed with 100 cc Omnipaque 350 intravenous contrast. The dose-length product was 258.68 mGy-cm. Automated exposure control and iter ative reconstruction technique were employed. COMPARISON: None. FINDINGS: There is emphysema with mild chronic interstitial lung disease. There is a 9 mm left lower lobe nodule. There is a 6 mm right middle lobe nodule. Mild cardiomegaly with left ventricular enlarg ement. No significant pleural or pericardial effusion. There is fatty infiltration of the liver. Ther e is severe atherosclerosis. There is a stent in the left common iliac artery which appears occluded or severely stenotic. The left external iliac artery also appears occluded. The spleen, pancreas, adrenal glands and kidneys are unremarkable. Gallbladder is present. Nonobstruc tive bowel gas pattern. Moderate colonic fecal loading. Severely enlarged prostate gland with moderat e bladder distention. There are diffuse lytic lesions of the spine, pelvis and femurs, suspicious for metastatic disease. IMPRESSION: 1. Bilateral pulmonary nodules, largest measuring 9 mm. Consider follow-up [address] chest or pet/CT scan. 2: Diffuse lytic lesions of the pelvis and to lesser extent the spine, suspicious for metastatic dise ase. Correlate for known malignancy. 3: Severe emphysema with underlying chronic interstitial lung disease. 4: Occlusion or severe stenosis of the left common and external iliac arteries. Left common iliac art olegario stents identified. Reviewed, dictated and finalized at location A. IMPRESSION: 1. Bilateral pulmonary nodules, largest measuring 9 mm. Consider follow-up [address] chest or pet/CT scan. 2: Diffuse lytic lesions of the pelvis and to lesser extent the spine, suspicio us for metastatic disease. Correlate for known malignancy. 3: Severe emphysema with underlying chronic interstitial lung disease. 4: Occlusion or severe stenosis of the left common and external iliac arteries. Left common iliac artery stents identified.
[2022-04-23 15:15] LABS: Estimated Glomerular Filt Rate > 60
== END 2022-04-23 14:53 | disposition home or self-care (01) ==
LOC: ANHIMG 14:55
PROVIDERS: PCP Family Medicine; Visit Provider Physician Assistant
DX: R10.30 Lower abdominal pain, unspecified (principal); N39.0 Urinary tract infection, site not specified; R53.81 Other malaise; R91.8 Other nonspecific abnormal finding of lung field; J43.9 Emphysema, unspecified
CPT/HCPCS: 74177; Q9967

== ENCOUNTER 2022-04-29 12:01 | Outpatient (CLI) | payer MEDICARE, SELFPAY ==
--- NOTE | ~2022-04-29 | PE_ITS ---
EXAMINATION: PET skull to mid thigh DATE: 04/29/2022 14:16 INDICATION: Other nonspecific abnormal finding in lung field. Pulmonary nodules. TECHNIQUE: Blood glucose level was 106 mg/dL. 10.146 mCi of 18-fluorodeoxyglucose (18-FDG) was admini stered i.v. Low dose computed tomography (CT) images were acquired from the base of the brain to the proximal thighs for attenuation correction and anatomic localization. Automated exposure control was employed. Dose-length product (DLP) was 500 mGy-cm. Positron emission tomography (PET) images were ac quired in the same distribution. COMPARISON: CT abdomen and pelvis 04/23/2022 FINDINGS: Head/neck: There is increased activity in the oral cavity, pharynx, glottis, major salivary glands, a nd paraspinal muscles without abnormal CT correlate, likely physiologic. There are no pathologically enlarged lymph nodes. Chest: There is moderate emphysema. Calcified pulmonary nodules and calcified hilar lymph nodes are c onsistent with old granulomatous disease. There are a few scattered nodules in the lungs measuring up to 9 mm in left lower lobe without increased activity. There are small pleural effusions. The heart size is normal. There are coronary artery calcifications. There are changes of coronary artery bypass grafting. No pericardial effusion. There is a left chest wall pacer with leads in the right atrium a nd right ventricle. Abdomen/pelvis/proximal thighs: The liver and spleen are normal. There are gallstones in the gallblad lindy, which is normal in size. The pancreas and adrenal glands are normal. There is a 1.8 cm cyst in r ight kidney. Left kidney is normal. There is calcified atherosclerosis of the aorta and many of the o ther arteries. There are no dilated loops of bowel. There is a stent in left common iliac artery. The re is an arterial graft in left thigh. There is a left perianal abscess measuring 2.1 x 2.2 cm with i ncreased activity. There is fat stranding superficial to the ischial tuberosities and sacrum, consist ent with inflammation/scarring. There is diffuse osteopenia. There is severe lumbar spondylosis. Ther e is a benign bone island in L1 vertebral body. IMPRESSION: 1. Pulmonary nodules measuring up to 9 mm without increased activity, probably benign. Noncontrast lo w-dose chest CT is recommended in 6 months. 2. Small pleural effusions. 3. 2.1 x 2.2 cm left perianal abscess. Reviewed, dictated and finalized at location A. IMPRESSION: 1. Pulmonary nodules measuring up to 9 mm without increased activity, probably benign. Noncontrast low-dose chest CT is recommended in 6 months. 2. Small pleural effusions. 3. 2.1 x 2.2 cm left perianal abscess.
[2022-04-29 12:25] LABS: Glucose Point of Care 106 mg/dl (65-105)
== END 2022-04-29 12:02 | disposition home or self-care (01) ==
LOC: ANHIMG 12:04
PROVIDERS: PCP Family Medicine; Visit Provider Physician Assistant
DX: R91.8 Other nonspecific abnormal finding of lung field (principal); J90 Pleural effusion, not elsewhere classified; K61.0 Anal abscess
CPT/HCPCS: 78815; A9552

== ENCOUNTER 2022-08-02 00:05 | Day surgery (SDC) | payer MEDICARE, SELFPAY ==
[2022-07-26 13:16] VITALS: BMI 36.6
[2022-08-02 11:22] VITALS: BP 106/43; PULSE 66; RESP 17; TEMP 36.3; O2SAT 99; BMI 36.6
--- NOTE | 2022-08-02 11:25 | PC.NURSE ---
Per patient, he started an antibiotic over the weekend for open wounds that are on his left leg stump and 2 wounds on his bottom. Doctors notified.
[2022-08-02] MEDS: LACTATED RINGERS 1,000 ML 150 ML IV CONT (11:44)
[2022-08-02 11:47] LABS: Glucose Point of Care 105 mg/dl (65-105)
--- NOTE | 2022-08-02 11:49 | WPDANESEPPF ---
Anes - Initial Pre Proc Eval Procedure: Operation Date: 08/02/22 12:30 Proposed Procedures p Esophagogastroduodenoscopy EGD - Alfred Chacon MD Date/Time: 08/02/22 11:49 Surgeon: Alfred Chacon MD Pre Op Diagnosis: dysphagia Patient Data Age: 76 Gender: M Height: 1.22 m Weight: 54.5 kg Last Vital Signs Temp 36.3 C L 08/02/22 11:22 Pulse 66 08/02/22 11:22 Resp 17 08/02/22 11:22 BP 106/43 L 08/02/22 11:22 Pulse Ox 99 08/02/22 11:22 O2 Del Method Room Air 08/02/22 11:22 Allergies Allergy/AdvReac Type Severity Reaction Status Date / Time No Known Allergies Allergy Verified 08/02/22 11:18 Home Medications Medication Instructions Recorded Confirmed Type aspirin 81 mg tablet,delayed 81 mg PO DAILY 01/18/21 08/02/22 History release (Adult Aspirin Regimen) carvedilol 3.125 mg tablet (Coreg) 3.125 mg PO Q12H 01/18/21 08/02/22 History potassium chloride 20 mEq 20 meq PO DAILY@0800 #30 tabs 07/17/21 08/02/22 Rx tablet,extended release (K-Tab) docusate sodium 100 mg capsule 100 mg PO BID PRN Constipation 10/05/21 08/02/22 History rosuvastatin 40 mg tablet 20 mg PO QAM #0 tabs 10/14/21 08/02/22 Rx blood sugar diagnostic (OneTouch #100 ea 11/13/21 08/02/22 Rx Ultra Test strips) tamsulosin 0.4 mg capsule 0.8 mg PO HS #180 caps 01/14/22 08/02/22 Rx omeprazole 40 mg capsule,delayed 40 mg PO DAILY #30 caps 06/22/22 08/02/22 Rx release codeine 10 mg-guaifenesin 100 mg/5 5 ml PO Q4-6H PRN cough #120 mL 07/05/22 08/02/22 Rx mL oral liquid furosemide 40 mg tablet 40 mg PO DAILY #90 tabs 07/12/22 08/02/22 Rx glipizide 5 mg tablet, extended 5 mg PO DAILY@0800 #90 tabs 07/12/22 08/02/22 Rx release 24 hr (Glucotrol XL) Laboratory Tests 08/02/22 11:37 POC Capillary Glucose 105 mg/dl mg/dl (65-105) Patient hx anesthesia problems: none Family hx anesthesia problems: none Results Review: All pre-operative results and documents have been reviewed as part of the pre-operative evaluation. [facility] Past Medical History Medical History BPH (benign prostatic hyperplasia) Cardiac pacemaker Cervical disc disease CHF (congestive heart failure) Chronic back pain Chronic kidney disease, stage 3 Chronic wound of extremity COPD (chronic obstructive pulmonary disease) Coronary artery disease Enlarged prostate with urinary retention Esophageal stricture GERD (gastroesophageal reflux disease) History of atrial fibrillation History of depression History of recurrent UTIs Hyperlipidemia Hypertension Irritable bowel syndrome Lumbar disc disease Lytic bone lesion of femur Osteoarthritis Osteoporosis Pacemaker Peripheral neuropathy Peripheral vascular disease Pulmonary nodules Restless leg syndrome Tobacco abuse Type 2 diabetes mellitus Surgical History Surgical History History of angioplasty History of cataract surgery Hx of AKA (above knee amputation) Right Hx of AKA (above knee amputation) Left S/P ablation of atrial fibrillation S/P AKA (above knee amputation) bilateral S/P femoral-popliteal bypass surgery Status post aorto-coronary artery bypass graft Family History Family History Mother Diabetes mellitus Father Heart disease Social History Social History Social History: . Patient lives alone. 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 He has many friends and support him and visit him regularly. Patient is smokes 1 pack per day and currently wishes to quit smoking and is on a nicotine patch. Prior to this patient was independent with ADLs without a device. Patient used a wheelchair and caregivers systems after he fell ill roughly 2 weeks Prieb prior to admit. Patient has a living will in his POA is Tamica gland at [phone]. Tamica will
--- NOTE | 2022-08-02 11:59 | PM.HPGS ---
History of Present Illness History of Present Illness Consent: Risks, benefits, and alternatives have been discussed and questions answered. Patient agrees to proceed with procedure. Chief complaint: dysphagia Narrative: Harris Ray is a 76 year old male Presents for EGD. Patient has a multiple medical problems including diabetes peripheral vascular disease. He has a history of previous bilateral dwgdy-cgh-gbli amputations. Patient reports for at least 9 months has had difficulty swallowing. Sometimes liquids and solids will catch in his throat causing him to regurgitate. Patient states it may progress a little bit into the substernal portion the chest. He also coughs up quite a bit of phlegm. Patient reports recent CT scan that shows bone lesions that her lytic in suspicious for metastatic disease. Apparently is being followed for COPD, congestive heart failure. Previous pacemaker. Chronic kidney disease, coronary artery disease. Patient has a history of atrial fibrillation. Review of Systems Review of Systems: Review of systems noncontributory. [facility] Past Medical History Medical History BPH (benign prostatic hyperplasia) Cardiac pacemaker Cervical disc disease CHF (congestive heart failure) Chronic back pain Chronic kidney disease, stage 3 Chronic wound of extremity COPD (chronic obstructive pulmonary disease) Coronary artery disease Enlarged prostate with urinary retention Esophageal stricture GERD (gastroesophageal reflux disease) History of atrial fibrillation History of depression History of recurrent UTIs Hyperlipidemia Hypertension Irritable bowel syndrome Lumbar disc disease Lytic bone lesion of femur Osteoarthritis Osteoporosis Pacemaker Peripheral neuropathy Peripheral vascular disease Pulmonary nodules Restless leg syndrome Tobacco abuse Type 2 diabetes mellitus Surgical History Surgical History History of angioplasty History of cataract surgery Hx of AKA (above knee amputation) Right Hx of AKA (above knee amputation) Left S/P ablation of atrial fibrillation S/P AKA (above knee amputation) bilateral S/P femoral-popliteal bypass surgery Status post aorto-coronary artery bypass graft Family History Family History Mother Diabetes mellitus Father Heart disease Social History Social History Social History: . Patient lives alone. 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 He has many friends and support him and visit him regularly. Patient is smokes 1 pack per day and currently wishes to quit smoking and is on a nicotine patch. Prior to this patient was independent with ADLs without a device. Patient used a wheelchair and caregivers systems after he fell ill roughly 2 weeks Prieb prior to admit. Patient has a living will in his POA is Tamica resendiz at [phone]. Tamica will be staying with the patient for a week after discharge. Patient states that he does not want intubation, he does want meds and chest precautions. Code status has been adjusted Smoking packs per day: 1 Smoking cigarettes per day: 20.0 Years smoked: 60 Smoking pack-years: 60.00 Smoking status: Current every day smoker Tobacco type: cigarettes Second hand tobacco smoke exposure: Yes Additional smoking assessment comments: WEARING NICOTINE PATCH DURING HOSPITALIZATION Alcohol intake: current Alcohol use details: OCCASIONALLY Substance use: current Substance use type: marijuana Last use: DAILY Living arrangements: alone Gender identity (if verbalized by the patient): Male Spiritual care concerns: No Meds Home Medications and Allergies Home Medications Medication Instructions Recorded Confirmed Type aspirin 81 mg tablet,delayed 81 mg PO DAILY 01/18/21 08/02/22
[2022-08-02 13:01] VITALS: BP 98/53; PULSE 69; RESP 21; O2SAT 98
[2022-08-02 13:11] VITALS: BP 95/46; PULSE 65; RESP 24; O2SAT 98
[2022-08-02 13:21] VITALS: BP 112/57; PULSE 61; RESP 20; O2SAT 99
== END 2022-08-02 13:38 | disposition home or self-care (01) ==
PROVIDERS: PCP Family Medicine; Visit Provider Internal Medicine Gastroenterology
PROC: 0DJ08ZZ Inspection of Upper Intestinal Tract, Via Natural or Artificial Opening Endoscopic (ICD-10-PCS; CPT 43235; principal; 2022-08-02 12:30)
DX: R13.10 Dysphagia, unspecified (principal); I13.0 Hypertensive heart and chronic kidney disease with heart failure and stage 1 through stage 4 chronic kidney disease, or unspecified chronic kidney disease; E11.22 Type 2 diabetes mellitus with diabetic chronic kidney disease; N18.30 Chronic kidney disease, stage 3 unspecified; I25.10 Atherosclerotic heart disease of native coronary artery without angina pectoris; N40.0 Benign prostatic hyperplasia without lower urinary tract symptoms; I50.9 Heart failure, unspecified; J44.9 Chronic obstructive pulmonary disease, unspecified; M89.9 Disorder of bone, unspecified; E78.5 Hyperlipidemia, unspecified; M81.0 Age-related osteoporosis without current pathological fracture; E11.42 Type 2 diabetes mellitus with diabetic polyneuropathy; E11.51 Type 2 diabetes mellitus with diabetic peripheral angiopathy without gangrene; G25.81 Restless legs syndrome; Z95.0 Presence of cardiac pacemaker; Z79.82 Long term (current) use of aspirin; Z79.84 Long term (current) use of oral hypoglycemic drugs; Z89.612 Acquired absence of left leg above knee; Z89.611 Acquired absence of right leg above knee; Z95.1 Presence of aortocoronary bypass graft; F17.210 Nicotine dependence, cigarettes, uncomplicated; F12.90 Cannabis use, unspecified, uncomplicated
CPT/HCPCS: 43235; 82948; J2704; J7120

== ENCOUNTER 2022-11-01 10:02 | Outpatient (CLI) | payer MEDICARE, SELFPAY ==
--- NOTE | ~2022-11-01 | CT_ITS ---
EXAMINATION:CT diagnostic chest wo con DATE: 11/01/2022 10:25 INDICATION: Pulmonary nodules. TECHNIQUE: Computed tomography (CT) of the chest was performed without intravenous contrast. Automate d exposure control and iterative reconstruction technique were employed. The dose-length product (DLP ) was 71.22 mGy-cm. COMPARISON: CT abdomen and pelvis 04/23/2022, PET/CT 04/29/2022 FINDINGS: There is moderate emphysema. Calcified bilateral lung nodules and calcified right hilar lym ph nodes are consistent with old adenomatous disease. There is a 9 mm nodule in left lower lobe, stab le from 04/23/2022. There are multiple other scattered nodules in the lungs measuring up to 5 mm in ri ght middle lobe. There are trace pleural effusions. Cardiomegaly is noted. There are coronary artery calcifications. There are changes of coronary artery bypass grafting. No pericardial effusion. There is calcified atherosclerosis of the aorta and many of the other arteries. There is a left chest wall pacer with leads in the right atrium and right ventricle. There is mild chronic anterior wedging of m ultiple vertebral bodies. There is severe cervical spondylosis and moderate thoracic spondylosis. The re are benign bone islands in L1 and T10 vertebral bodies. IMPRESSION: 1. Stable pulmonary nodules measuring up to 9 mm, likely benign. Noncontrast low-dose chest CT is rec ommended in one year. 2. Moderate emphysema. Reviewed, dictated and finalized at location A. ATOLOGY PROFESSOR IMPRESSION: 1. Stable pulmonary nodules measuring up to 9 mm, likely benign. Noncontrast lo w-dose chest CT is recommended in one year. 2. Moderate emphysema.
== END 2022-11-01 10:03 | disposition home or self-care (01) ==
PROVIDERS: PCP Family Medicine; Visit Provider Physician Assistant
DX: R91.8 Other nonspecific abnormal finding of lung field (principal); J43.9 Emphysema, unspecified
CPT/HCPCS: 71250

== ENCOUNTER 2022-11-15 10:44 | Outpatient (CLI) | payer MEDICARE, SELFPAY ==
--- NOTE | ~2022-11-15 | XR_ITS ---
MODIFIED ESOPHAGRAM HISTORY: Dysphagia. TECHNIQUE: Modified barium esophagram was performed by speech pathologist under radiologist fluorosco pic guidance. This was recorded on tape. The exam was reviewed on 11/15/2022 16:17 CDT. The DAP for this procedure was 0.875 Gycm2. Fluoroscopy time is 1.3 minutes. FINDINGS: Lateral projection of the cervical spine demonstrates normal alignment. During pharyngeal stage of swallowing there is vallecular residue with trace laryngeal penetration. No aspiration.. IMPRESSION: 1: Trace laryngeal penetration without aspiration. 2: Please refer to speech pathologist report for additional detail. Reviewed, dictated and finalized at location A.
--- NOTE | 2022-11-15 13:39 | REHSTMBS ---
Assessment and note entered by Sidra Webster, [employer] Modified Barium Swallow Evaluation Diagnosis N/A Subjective Information Patient describes intermittent difficulty in swallowing food and liquid that began approximately two years ago. Patient unable to report on a probable cause to swallowing difficulty. Patient describes food (specifically bread) getting stuck in his throat and water regurgitating into his mouth. He also reports eating less because of this, although does not report weight loss. Patient says he does not have this issue at the moment; last occurrence of this issue lasted about a month and was alleviated two weeks ago after being scoped with his ENT. Feeding Type Recommended Oral Food Consistency Regular, Level 7 Liquid Consistency Thin (0) ST Clinical Summary Harris Ray is a 77 year old male who was referred to complete a Modified Barium Swallow Study after reporting swallow difficulty to his ENT and completing a flexible endoscopy with no significant findings. Patient has a past medical history signficant for COPD, CAD, HTN, and GERD. Patient describes intermittent difficulty in swallowing food and liquid that began approximately two years ago. Patient unable to report on a probable cause to swallowing difficulty. Patient describes food (specifically bread) getting stuck in his throat and water regurgitating into his mouth. He also reports eating less because of this, although does not report weight loss. Patient says he does not have this issue at the moment; last occurrence of this issue lasted about a month and was alleviated two weeks ago after being scoped with his ENT. Patient completed all trials demonstrating a swallow that was within normal limits. Patient had instances of trace residue in the valleculae, indicating reduced lingual pressure and one instance of flash penetration during consecutive swallow indicating a slight deviation in laryngeal elevation. However, it was determined that his swallow was well within normal limits. Patient was educated on compensatory strategies to use during meals (i.e. reduce distractions, small bites, eat slowly, take breaks) and reports using several, but inconsistently.
== END 2022-11-15 10:45 | disposition home or self-care (01) ==
PROVIDERS: PCP Family Medicine; Visit Provider Internal Medicine Gastroenterology
DX: R13.10 Dysphagia, unspecified (principal)
CPT/HCPCS: 92611